=== PATIENT | male | born 1995 | race Caucasian/White ===

== ENCOUNTER 2020-12-29 16:30 | Inpatient (IN) | payer MEDICAID, SELFPAY ==
[2020-12-29 16:45] VITALS: BMI 25.0
[2020-12-29 16:46] VITALS: BP 136/68; PULSE 98; RESP 20; TEMP 36.8; O2SAT 99
[2020-12-29] MEDS: hyDROXYzine 25 mg Capsule 50 MG PO (18:35)
--- NOTE | 2020-12-29 18:36 | PC.NURSE ---
PRN VISTARIL 50 MG GIVEN PO PER PT C/O STATED ANXIETY. PT HAS PRESSURED RAPID SPEECH, NOTED TO BE PACING UNIT. MANIC BEHAVIOR, SAYING HE IS VALERIANO HYPER UATSDIN. REDIRECTED BY STAFF OFTEN.
[2020-12-29] MEDS: nicotine 2 mg Gum BUCCAL (19:59)
[2020-12-29] MEDS: trazodone 50 mg Tablet PO (19:59)
[2020-12-29 20:58] VITALS: BP 116/52; PULSE 67; RESP 20; TEMP 36.7; O2SAT 99
--- NOTE | 2020-12-30 05:41 | PC.NURSE ---
Patient up at start of shift. Hyper-verbal, overly excited. Delusional thought process, talking about being Marlon, asking others to give him their demons. Re-directable but needs frequent direction. Took Trazodone that was effective. In beds resting with eyes closed most of night.
[2020-12-30 06:00] VITALS: BP 116/65; PULSE 95; RESP 18; TEMP 36.1; O2SAT 98
--- NOTE | 2020-12-30 10:38 | W.PM.NPUH&PS ---
Providers/Chief Complaint Admitting Physician: Yamil Boggs MD Chief Complaint: PSYCHOSIS - - - RM 170 HPI NPU History of Present Illness Davidson Zaman is a 25 year old male who presented to the outside hospital with concerns for psychosis and lethality. He was transferred to [facility] and admitted to the neuropsychiatric unit for definitive treatment of those issues. He presents today fairly animated, at times being very loud and aggressive with his speech. At one point during treatment team, he slipped a note through the door that said that he would not speak one word until he was discharged from our hospital. He wrote that on his 96-hour hold acknowledgment paperwork that gives him the time and information on the hold. At times he seemed aggressive and threatening, but at times he seemed calm and respectful, awful making rastafari comments like amen brother or thank God, sometimes giving a handshake and appearing welcoming, and other times being posturing. He reports he has had one psychiatric inpatient stay but it is not clear if he understood what that meant. He reports that he did have outpatient services as a kid, that he was on medications when he was 15 years old but denies any recently. He reports he smokes about a pack to two packs of cigarettes a day. He denies alcohol but endorses marijuana use. He initially said that he did not have any other illicit drug use, but then he seemed to suggest that he had. He denied ever being in the rehab or having a DUI. His conversation was sometimes staged in that he had certain word packages that he would state. One of the main ones was that he is an Hungarian martyr and he talked about being an [place] Martyr, though could not articulate what that actually meant. He talked about being stabbed in the legs, or stabbed at some point, but it seemed at one point that he was taking metaphorically about that. He talked about someone dying, but then it was unclear if that was real or imagined. He at times seemed to be lost in the conversation. He at one point denied that he would consider medication, then at another point when I talked to him about the fact that he was presenting with what we would call jaqueline and would benefit from medication. He initially refused and then he said he would take Abilify. We discussed the risks, benefits, and alternatives of me putting it on his medications for them to offer him in the morning, and he appeared to understand and agreed to proceed as is documented in this note. When asked about suicide attempts, he said he had one in the past but then continued on the rastafari focus talking about God and how only God could take you and God?s plans. He seemed to understand that he was on a 96-hour hold, but then did not seem to really understand the specifics. PSYCHIATRIC HISTORY: As above. SUBSTANCE ABUSE HISTORY: As above. FAMILY HISTORY: He reports that there are some mental health issues on his mother?s side, but then denied any other family history issues, addiction, suicide attempts, or completions. He seemed to be limited as a historian. DEVELOPMENTAL HISTORY: He denies any issues with his mother?s or delivery of him. He met all developmental milestones on time. He denies any speech therapy, learning support, emotional support, or special education classes. PSYCHOSOCIAL HISTORY: He reports his mom and dad were together when he was born, and that he has a younger sister that is the product of that union. He reports his mother had another daughter who is his half-sibling. He reports his childhood was great and denied any emotional, physical, or sexual abuse. He reports he graduated from high school and was in [employer] [[email or web address]] but did not finish. He endorses being a heterosexual with his longest relationship being three years. He reports he has never been , that he has a 7-year-old child somewhere and a child that was born on 07[birth year]04[birth year]20 as well. He denies being in the but does report this [employer] [[email or web address]] thing, and again reported that he was an Hungarian Martyr. He endorses being a Orthodoxy. He reports that he has worked off and on, and he endorses living with his maternal grandmother. LEGAL HISTORY: He reports he has never been in long-term. MEDICAL HISTORY: Denied. Meds NPU Allergies Allergy/AdvReac Type Severity Reaction Status Date / Time No Known Allergies Allergy Verified 12/29/20 18:33 PFSH NPU PFS: Medical History (Updated 12/31/20 @ 09:07 by Yamil Boggs MD) Psychosis Mental Status Exam MSE Comments: This is a well-nourished, well-developed, tall, white male, in hospital scrubs, with adequate dress, grooming, and eye contact. No abnormal movements except for some psychomotor agitation. Limited cooperation with exam in mild to moderate distress at times. Speech was at times limited and at other times increased rate and pressured. Mood described as fine; affect elevated. Thought process, disorganized at times. Thought content: patient denied any suicidal or homicidal ideation, there were no delusions reported but clear hyper-rastafari delusions noted as well as other delusions. He did not appear to be attending to internal stimuli and did not report auditory or visual hallucinations. Attention and concentration were limited, and memory was mostly reliable, but none were formally tested. He is alert and oriented times person and place. Insight and judgment are impaired, impulse control is impaired. Vitals/I&O/Wt Last Vital Signs Temp 96.9 F L 12/30/20 06:00 Pulse 95 12/30/20 06:00 Resp 18 12/30/20 06:00 BP 116/65 12/30/20 06:00 Pulse Ox 98 12/30/20 06:00 Weight last 48 hrs Weight 90.718 kg A&P Assessment and plan (1) Psychosis: Status: Acute Additional A&P Information This is a 25-year-old, white male, with psychosis/jaqueline, who presented with suicidal and homicidal assertions at outside hospital, on a 96-hour hold, seeming ambivalent about taking medications. RECOMMENDATION AND PLAN: 1. Continue current medication except start Abilify 10 mg po qam in the morning, offer medication as patient has both agreed, and denied a willingness to take medication. 2. Encourage individual, group, and milieu therapy. 3. Continue q-15 minute checks for safety. 4. Encourage sober living treatment after discharge, at the highest level of care, to which he is willing to commit. Involuntary Hold Information 96 Hour Hold: 96 Hour Involuntary Admission: Yes 96 Hour Hold Ending Date: 01/04/21 96 Hour Hold Ending Time: 16:45 Attestations NPU Medical Necessity Statement*: Inpatient hospitalization is medically necessary and the clinically appropriate intervention at this time. We will monitor medication to make changes as indicated. Likely length of stay 3 to 5 days. Coding Level of Care Code Acute Contestant Coordinator for Hollie Elder Diagnoses Psychosis F29
[2020-12-30] MEDS: nicotine 2 mg Gum BUCCAL (13:13)
[2020-12-30] MEDS: OLANZapine 5 mg ODT PO (13:23)
--- NOTE | 2020-12-30 13:37 | NPU.GN ---
[facility] Topic:Coping Checkers General Mood of Group: Davidson did attend group and tried to participate. He often got distracted and could not focus on task or group. Kept talking about god and how he is was killed. He was not making sense. He also kept trying to get another patient in group to fight him. This assembly instructions writer asked him to leave group and said when he feels that he can follow group rules then he can return as she was upsetting others. Patient apologized many times and left and came back a few times. Davidson is not stable at this time.
[2020-12-30 14:00] VITALS: BP 118/68; PULSE 106; RESP 20; TEMP 36.5; O2SAT 98
[2020-12-30] MEDS: diphenhydrAMINE 50 mg/mL SDV 1mL IM (15:31)
[2020-12-30] MEDS: LORazepam 2 mg/mL INJ 1 mL IM (15:31)
[2020-12-30] MEDS: haloperidol inj 5 mg/mL INJ 1 mL IM (15:32)
--- NOTE | 2020-12-30 15:32 | PC.NURSE ---
prn 1532 Administered 2mg ativan, 5 mg haldol, 50mg benadryl, witnessed pt having verbal arguments with other pt's, running down the hallway. Will continue to monitor pt.
[2020-12-30 20:08] VITALS: RESP 16
[2020-12-31 06:00] VITALS: BP 120/72; PULSE 84; RESP 18; O2SAT 99
[2020-12-31] MEDS: ARIPiprazole 10 mg Tablet PO (08:19)
[2020-12-31] MEDS: nicotine 2 mg Gum BUCCAL ×2 (08:20→19:47)
--- NOTE | 2020-12-31 10:11 | W.PM.NPUPNS ---
Subjective NPU Subjective: Interval history: He continues to be very active and delusional. He acts bizarre at times. He was pushing himself down the hallway on his stomach. He wrote a long letter that is difficult to understand. He was pleasant with my evaluation. He said that he had pledged not to talk for 24 hours but asked my permission if it was okay to break that promise. He talked with me readily. He said that he took the Abilify this morning. He does not need it because God is my medicine . He denies any side effects from the Abilify. He did not express any concerns about taking it. When asked why he was here he said that his logistics supply officer wanted him to come. He has a logistics supply officer because of paths methamphetamine abuse. He says that he has not used methamphetamine for the last 6 months. He showed me track sahu on both arms which he says have healed. He said that he used methamphetamine the first time when he was 20 and was going to join the [employer]. 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 Mental Status Exam MSE Comments: This is a well-nourished, well-developed, tall, white male, in hospital scrubs, with adequate dress, grooming, and eye contact. No abnormal movement . Psychomotor activity was normal. He was generally cooperative today. His speech is clear and coherent and a regular rate and rhythm. There is no push. His mood is good and his affect is animated. Thought content is very delusional and grandiose. At the end of the interview he looked out the window and said CL team 6 was out there and might kill him. When asked why he said because he has hired them and fired them and hired them and fired them . He denies any auditory or visual hallucinations and was not overtly attending to any. Attention and concentration appear to be limited and he is very distractible. He is impulsive and intrusive on the unit. Insight and judgment are very impaired. Vitals/I&O/Wt Last Vital Signs Temp 97.7 F 12/30/20 14:00 Pulse 84 12/31/20 06:00 Resp 18 12/31/20 06:00 BP 120/72 12/31/20 06:00 Pulse Ox 99 12/31/20 06:00 Weight last 48 hrs Weight 90.718 kg A&P Assessment and plan (1) Psychosis: Status: Acute Additional A&P Information This is a 25-year-old, white male, with psychosis/jaqueline, who presented with suicidal and homicidal assertions at outside hospital, on a 96-hour hold, seeming ambivalent about taking medications. RECOMMENDATION AND PLAN: 1. Continue current medication including Abilify 10 mg po qam in the morning. 2. Encourage individual, group, and milieu therapy. 3. Continue q-15 minute checks for safety. 4. Encourage sober living treatment after discharge, at the highest level of care, to which he is willing to commit. Involuntary Hold Information 96 Hour Hold: 96 Hour Involuntary Admission: Yes 96 Hour Hold Ending Date: 01/04/21 96 Hour Hold Ending Time: 16:45 Attestations NPU Medical Necessity Statement*: Inpatient hospitalization is medically necessary and the clinically appropriate intervention at this time. We will initiate medications and make changes as indicated. He will be in the hospital for over 2 midnights. Likely length of stay 4-6 days Coding Level of Care Code Acute Coil Maker for Hollie Fwqamar Diagnoses Psychosis F29
[2020-12-31] MEDS: OLANZapine 5 mg ODT PO ×2 (10:48→20:07)
--- NOTE | 2020-12-31 10:49 | PC.NURSE ---
prn Administered zyprexa zydis 5mg due to being loud and hyper jew pacing the halls and hanging out at the nurses station, will continue to monitor pt.
[2020-12-31] MEDS: haloperidol 5 mg Tablet PO (11:28)
--- NOTE | 2020-12-31 11:29 | PC.NURSE ---
prn Administered 5mg Haldol for pt hallucinating and talking to beings that are not visible, pacing up and down the hallway. Wanting to kill all [place] men for creating the covid virus. Pt stated that he sees signs in the venkata.
[2020-12-31 14:00] VITALS: BP 120/72; PULSE 84; RESP 18; TEMP 36.5; O2SAT 99
[2020-12-31 19:58] VITALS: BP 129/86; PULSE 87; RESP 18; O2SAT 98
[2020-12-31] MEDS: hyDROXYzine 25 mg Capsule 50 MG PO (20:06)
[2020-12-31] MEDS: trazodone 50 mg Tablet PO (20:07)
[2021-01-01 06:00] VITALS: RESP 16
--- NOTE | 2021-01-01 06:59 | W.PM.NPUPNS ---
Subjective NPU Subjective: Interval history: He continues to be very active and delusional. He acts bizarre at times. He was pleasant with my evaluation. He talked with me readily despite me interrupting his 15 minutes of standing for the fallen. He said that he is Marlon Rodriguez. He pointed out the window to the venkata and said that Michael was there. Later he said that I was his brother in [place]. He says that he took 4 pills last night to try to help him sleep. He took some hydroxyzine and Zyprexa Zydis. He was given Haldol once during the day. He thinks that he received some trazodone but that is not recorded. He said he had a very strange dream and he attributed that to the trazodone. He says that he slept 3 hours. He would like to sleep more. He feels like he is ready to go home. He agreed to stay a few more days. He was offered some Seroquel to help him sleep. He excepted that and said it helps his mother. She took 800 mg at 1 point. Mental Status Exam MSE Comments: This is a well-nourished, well-developed, tall, white male, in hospital scrubs, with adequate dress, grooming, and eye contact. No abnormal movement . Psychomotor activity was mildly increased. He was generally cooperative today. His speech is clear and coherent and a regular rate and rhythm. There is no push. His mood is good and his affect is animated. Thought content is very delusional and grandiose. He denies any auditory or visual hallucinations and was not overtly attending to any. Attention and concentration appear to be limited and he is very distractible. He is impulsive and intrusive on the unit. Insight and judgment are very impaired. Vitals/I&O/Wt Last Vital Signs Temp 97.7 F 12/31/20 14:00 Pulse 87 12/31/20 19:58 Resp 16 01/01/21 06:00 BP 129/86 12/31/20 19:58 Pulse Ox 98 12/31/20 19:58 A&P Assessment and plan (1) Psychosis: Status: Acute Additional A&P Information This is a 25-year-old, white male, with psychosis/jaqueline, who presented with suicidal and homicidal assertions at outside hospital, on a 96-hour hold, seeming ambivalent about taking medications. RECOMMENDATION AND PLAN: 1. Continue current medication including Abilify 10 mg po qam. Will add Seroquel 100 mg for sleep with a second dose if that does not sedate him enough. 2. Encourage individual, group, and milieu therapy. 3. Continue q-15 minute checks for safety. 4. Encourage sober living treatment after discharge, at the highest level of care, to which he is willing to commit. Involuntary Hold Information 96 Hour Hold: 96 Hour Involuntary Admission: Yes 96 Hour Hold Ending Date: 01/04/21 96 Hour Hold Ending Time: 16:45 Attestations NPU Medical Necessity Statement*: Inpatient hospitalization is medically necessary and the clinically appropriate intervention at this time. We will initiate medications and make changes as indicated. Coding Level of Care Code Acute Gathering Machine Setter for Hollie Elder Diagnoses Psychosis F29
[2021-01-01] MEDS: ARIPiprazole 10 mg Tablet PO (07:38)
[2021-01-01] MEDS: quetiapine 100 mg Tablet PO ×2 (07:38→09:57)
--- NOTE | 2021-01-01 13:12 | NPU.GN ---
[facility] Topic: Coping Skills BINGO General Mood of Group: Ramón was well groomed, dressed and good hygiene. He was in and out of group. At times he was disruptive. He was being hyper temple and was using inappropriate language in the group. I worried at times that he may have been making the group anxious. At one point I was able to ask him to speak with nursing staff so he would have a reason to leave the group with out being upset. He was not able to participate well in the group. He was not able to stay focused on the task (Marking X appropriately on Bingo page. His mental health and cognitive abilities seem to be in a decline.
[2021-01-01 14:00] VITALS: BP 129/86; PULSE 87; RESP 16; TEMP 36.5; O2SAT 98
[2021-01-01] MEDS: hyDROXYzine 25 mg Capsule 50 MG PO (16:34)
[2021-01-01] MEDS: trazodone 50 mg Tablet PO (20:06)
[2021-01-01 21:35] VITALS: BP 117/62; PULSE 93; RESP 18; TEMP 36.6; O2SAT 98
[2021-01-02 06:00] VITALS: RESP 15
[2021-01-02] MEDS: nicotine 2 mg Gum BUCCAL ×2 (06:33→18:10)
[2021-01-02] MEDS: OLANZapine 5 mg ODT PO (08:26)
[2021-01-02] MEDS: ARIPiprazole 10 mg Tablet PO (08:26)
[2021-01-02] MEDS: haloperidol 5 mg Tablet PO ×2 (10:49→19:16)
[2021-01-02 14:00] VITALS: BP 135/82; PULSE 110; RESP 18; TEMP 36.2; O2SAT 98
--- NOTE | 2021-01-02 14:16 | W.PM.NPUPNS ---
Subjective NPU Subjective: Interval history: He says that he slept 7 hours last night. He said that he only took 1 pill last night, the trazodone. It is recorded that he also took the hydroxyzine and Zyprexa Zydis 5 mg. He continues to be very delusional. He continues to say that he is the [place]yan[place] martyr and that Eddi Flores is a real person and is his cousin. He continues to be compliant with his morning Abilify. Mental Status Exam MSE Comments: This is a well-nourished, well-developed, tall, white male, in hospital scrubs, with adequate dress, grooming, and eye contact. No abnormal movement . Psychomotor activity was mildly increased. He was generally cooperative today. His speech is clear and coherent and a regular rate and rhythm. There is no push. His mood is good and his affect is animated. Thought content is very delusional and grandiose. He denies any auditory or visual hallucinations and was not overtly attending to any. Attention and concentration appear to be limited and he is very distractible. He is impulsive and intrusive on the unit. Insight and judgment are very impaired. Vitals/I&O/Wt Last Vital Signs Temp 97.9 F 01/01/21 21:35 Pulse 93 01/01/21 21:35 Resp 15 01/02/21 06:00 BP 117/62 01/01/21 21:35 Pulse Ox 98 01/01/21 21:35 A&P Assessment and plan (1) Psychosis: Status: Acute Additional A&P Information This is a 25-year-old, white male, with psychosis/jaqueline, who presented with suicidal and homicidal assertions at outside hospital, on a 96-hour hold, seeming ambivalent about taking medications. RECOMMENDATION AND PLAN: 1. Continue current medication including Abilify 10 mg po qam. Will add Seroquel 100 mg for sleep with a second dose if that does not sedate him enough. 2. Encourage individual, group, and milieu therapy. 3. Continue q-15 minute checks for safety. 4. Encourage sober living treatment after discharge, at the highest level of care, to which he is willing to commit. Involuntary Hold Information 96 Hour Hold: 96 Hour Involuntary Admission: Yes 96 Hour Hold Ending Date: 01/04/21 96 Hour Hold Ending Time: 16:45 Attestations NPU Medical Necessity Statement*: Inpatient hospitalization is medically necessary and the clinically appropriate intervention at this time. We will initiate medications and make changes as indicated Coding Level of Care Code Acute Department [employer] for Hollie Fwqamar Diagnoses Psychosis F29
--- NOTE | 2021-01-02 19:17 | PC.NURSE ---
Patient angry, yelling about the news and the russell trial . Patient yelling about biden and trump. Patient states, just give me the shot!! Patient up on the bench, pushing on ceiling tiles, stating again about we should all quit and get out now. Haldol 5mg given PO. Will continue to monitor.
[2021-01-02 20:45] VITALS: RESP 19
[2021-01-02] MEDS: trazodone 50 mg Tablet PO (20:59)
[2021-01-02] MEDS: quetiapine 100 mg Tablet PO (20:59)
[2021-01-03 06:00] VITALS: BP 110/66; PULSE 103; RESP 18; TEMP 36.9; O2SAT 99; BMI 25.0
--- NOTE | 2021-01-03 07:17 | P.NPUPN_ITS ---
Subjective NPU Subjective: Interval history: He has been compliant with his medications. He said he slept very well last night with the Seroquel. He was also given Zyprexa Zydis and hydroxyzine. He continues to be up and pacing the hallway. He is very intrusive into other people's conversations. He continues to be very grandiose with a lot of taoist preoccupation. At one point he said that I was Marlon Rodriguez. He has a lot of gesturing that sometimes you can determine the intention and sometimes not. He is sometimes redirectable and sometimes not. Unfortunately my office has a door on the hallway and he has learned that that is my door and knocks on it several times a day and keeps saying things until I respond. He asked about court and initially said he was looking forward to going to court with me. Then he reversed that and said he did not want to go to court and wanted to go home. Mental Status Exam MSE Comments: This is a well-nourished, well-developed, tall, white male, in hospital scrubs, with adequate dress, grooming, and eye contact. No abnormal movement . Psychomotor activity was mildly increased. He is usually walking up and down the hallway. He has a lot of gesturing with his arms and hands. He was generally cooperative today. His speech is clear and coherent and a regular rate and rhythm. There is no push. His mood is good and his affect is animate d. Thought content is very delusional and grandiose. He denies any auditory or visual hallucinations and was not overtly attending to any. Attention and concentration appear to be limited and he is very distractible. He is impulsive and intrusive on the unit. Insight and judgment are very impaired. Cognition: Patient Appearance: Appropriate Ability to Follow Directions: Poor Patient Orientation (long list): Person, Place and Name Comprehension Ability: No Impairment Hallucination Type: None Delusion Description: Denominational Thought Process: Circumstantial, Disorganized, Flight of Ideas, Loose Associations and Tangential Affect: Affect Description: Appropriate and Calm Behavior: Patient Behavior: Appropriate and Cooperative Speech Pattern: Appropriate and Clear Vitals/I&O/Wt Last Vital Signs Temp 98.4 F 01/03/21 06:00 Pulse 103 H 01/03/21 06:00 Resp 18 01/03/21 06:00 BP 110/66 01/03/21 06:00 Pulse Ox 99 01/03/21 06:00 Weight last 48 hrs Weight 90.718 kg A&P Assessment and plan (1) Psychosis: Status: Acute Additional A&P Information This is a 25-year-old, white male, with psychosis/jaqueline, who presented with suicidal and homicidal assertions at outside hospital, on a 96-hour hold, seeming ambivalent about taking medications. RECOMMENDATION AND PLAN: 1. Continue current medication including Abilify 10 mg po qam and Seroquel 100 mg for sleep. 2. Encourage individual, group, and milieu therapy. 3. Continue q-15 minute checks for safety. 4. Encourage sober living treatment after discharge, at the highest level of care, to which he is willing to commit. 5. hearing for 21 day hold will be in 2 or 3 days. Involuntary Hold Information 96 Hour Hold: 96 Hour Involuntary Admission: Yes 96 Hour Hold Ending Date: 01/04/21 96 Hour Hold Ending Time: 16:45 Attestations NPU Medical Necessity Statement*: Inpatient hospitalization is medically necessary and the clinically appropriate intervention at this time. We will initiate medications and make changes as indicated Coding Level of Care Code Acute Acid Wash Operator for Hollie Elder Diagnoses Psychosis F29
[2021-01-03] MEDS: ARIPiprazole 10 mg Tablet PO (08:59)
[2021-01-03] MEDS: haloperidol 5 mg Tablet PO (10:11)
[2021-01-03] MEDS: nicotine 2 mg Gum BUCCAL (11:19)
[2021-01-03 14:00] VITALS: BP 125/75; PULSE 96; RESP 20; TEMP 36.3; O2SAT 98
[2021-01-03] MEDS: trazodone 50 mg Tablet PO (20:55)
[2021-01-03] MEDS: quetiapine 100 mg Tablet PO (20:55)
--- NOTE | 2021-01-03 20:55 | PC.NURSE ---
pt had requested sleep med with hs med. trazodone 50mg po given.
[2021-01-03 20:58] VITALS: RESP 17
--- NOTE | 2021-01-03 21:01 | PC.NURSE ---
pt sleeping/respirations observed/will obtain vital signs later
[2021-01-04 06:00] VITALS: RESP 16
[2021-01-04] MEDS: ARIPiprazole 10 mg Tablet PO (09:55)
[2021-01-04] MEDS: haloperidol 5 mg Tablet PO (10:49)
[2021-01-04] MEDS: OLANZapine 5 mg ODT PO (10:49)
[2021-01-04] MEDS: diphenhydrAMINE 50 mg/mL SDV 1mL IM (11:23)
[2021-01-04] MEDS: LORazepam 2 mg/mL INJ 1 mL IM (11:24)
--- NOTE | 2021-01-04 11:47 | P.NPUPN_ITS ---
Subjective NPU Subjective: Interval history: He is more agitated and more hyper today. He has more intrusive. He seems to be more psychotic. He has been agitating the other patients more. He was given a as needed of Zyprexa Zydis and Haldol this morning with minimal effect. He was then given an injection of Ativan and Benadryl with some additional benefit. It does not seem like the Abilify 10 mg is doing anything. Will change to twice a day Zyprexa. Mental Status Exam MSE Comments: This is a well-nourished, well-developed, tall, white male, in hospital scrubs, with adequate dress, grooming, and eye contact. No abnormal movement . Psychomotor activity was more increased. He is usually walking up and down the hallway. He has a lot of gesturing with his arms and hands. He was generally cooperative today. His speech is clear and coherent and a regular rate and rhythm. There is some push. His mood is good and his affect is more animated. Thought content is very delusional and grandiose. He was talking to other patients about his abilities. He said that he did not understand why he could not heal one of the other patients. He denies any auditory or visual hallucinations and was not overtly attending to any. Attention and concentration appear to be limited and he is very distractible. He is impulsive and intrusive on the unit. Insight and judgment are very impaired. Cognition: Patient Appearance: Appropriate Ability to Follow Directions: Poor Patient Orientation (long list): Person, Place and Name Comprehension Ability: No Impairment Hallucination Type: Auditory and Visual Delusion Description: Paranoid Ideation and Christianity Thought Process: Circumstantial, Disorganized, Flight of Ideas, Loose Associations and Tangential Affect: Affect Description: Labile Behavior: Patient Behavior: Impulsive Speech Pattern: Excessive and Rambling Vitals/I&O/Wt Last Vital Signs Temp 97.4 F L 01/03/21 14:00 Pulse 96 01/03/21 14:00 Resp 16 01/04/21 06:00 BP 125/75 01/03/21 14:00 Pulse Ox 98 01/03/21 14:00 Weight last 48 hrs Weight 90.718 kg A&P Assessment and plan (1) Psychosis: Status: Acute Additional A&P Information This is a 25-year-old, white male, with psychosis/jaqueline, who presented with pascal icidal and homicidal assertions at outside hospital, on a 96-hour hold, seeming ambivalent about taking medications. RECOMMENDATION AND PLAN: 1. We will discontinue Abilify 10 mg and try Zyprexa 10 mg twice a day. We will continue Seroquel 100 mg at bedtime and the other as neededs.. 2. Encourage individual, group, and milieu therapy. 3. Continue q-15 minute checks for safety. 4. Encourage sober living treatment after discharge, at the highest level of care, to which he is willing to commit. 5. hearing for 21 day hold will be in 2 or 3 days. Involuntary Hold Information 96 Hour Hold: 96 Hour Involuntary Admission: Yes 96 Hour Hold Ending Date: 01/04/21 96 Hour Hold Ending Time: 16:45 Attestations NPU Medical Necessity Statement*: Inpatient hospitalization is medically necessary and the clinically appropriate intervention at this time. We will initiate medications and make changes as indicated. Coding Level of Care Code Acute Manager Service Desk for Hollie Elder Diagnoses Psychosis F29
--- NOTE | 2021-01-04 13:32 | NPU.GN ---
[facility] Topic:Psychiatric Education General Mood of Group: Davidson did attend and participate in group. This specification writer had to redirect this patient many times and encourage the patient to be respectful of others. He was asked to take awalk and gather his thoughts and return when he can. Davidson is all over the place with discussion and topics. His mental state is unsteady at this time.
[2021-01-04 14:00] VITALS: RESP 17
[2021-01-04] MEDS: OLANZapine 10 mg TABLET PO (20:36)
[2021-01-04] MEDS: quetiapine 100 mg Tablet PO (20:36)
[2021-01-04 21:21] VITALS: BP 127/68; PULSE 67; RESP 17; TEMP 36.8; O2SAT 97
[2021-01-05] MEDS: OLANZapine 10 mg TABLET PO ×2 (05:53→21:09)
[2021-01-05 06:00] VITALS: BP 128/74; PULSE 104; RESP 16; TEMP 37.2; O2SAT 100
[2021-01-05] MEDS: nicotine 2 mg Gum BUCCAL (10:15)
--- NOTE | 2021-01-05 12:40 | NPU.GN ---
[facility] Topic:roup Topic: What are we Thankful For General Mood of Group: Davidson did attend group and he participated . He was very social and in a good mindset. His hygiene was ok. He had to be reoriented and redirected many times as he was being disruptive in group and got another female patient upset . Davidson can not stay goal or topic oriented his thoughts and speeches are all sporadic and he can not hold a conversation on task. He even got rude to another male client at the end of group and this development writer had to verbally intervene and tell the patient that is it is not acceptable to treat others that way. Davidson then calmed down and apologized to this development writer and the other patient. He is not mentally or emotionally stable at this time.
[2021-01-05 14:00] VITALS: BP 132/82; PULSE 90; RESP 18; TEMP 36.4; O2SAT 99
[2021-01-05] MEDS: OLANZapine 5 mg ODT PO (16:05)
[2021-01-05] MEDS: haloperidol 5 mg Tablet PO (16:05)
[2021-01-05] MEDS: trazodone 50 mg Tablet PO (21:08)
[2021-01-05] MEDS: quetiapine 100 mg Tablet PO (21:08)
[2021-01-05 21:48] VITALS: RESP 19
[2021-01-06 06:00] VITALS: BP 103/58; PULSE 64; RESP 16; TEMP 37; O2SAT 99
[2021-01-06] MEDS: OLANZapine 10 mg TABLET PO ×3 (06:25→19:42)
[2021-01-06] MEDS: haloperidol 5 mg Tablet PO ×3 (08:09→19:42)
[2021-01-06] MEDS: OLANZapine 5 mg ODT PO ×2 (08:09→14:08)
[2021-01-06] MEDS: hyDROXYzine 25 mg Capsule 50 MG PO ×3 (08:10→19:42)
--- NOTE | 2021-01-06 08:11 | PC.NURSE ---
Patient repeating, you have permission to poison my food if I am evil and not Marlon Michael I will stand here at attention for 30 minutes waiting for Hung Kelly the next executive vice president business development medicated patient with PRN orders, Yessica Rodriguez, and Lesia CUELLAR.
--- NOTE | 2021-01-06 13:14 | NPU.GN ---
[facility] Group Topic:Group Topic: Pie of Emotions, Coping, and Supports General Mood of Group: Davidson did eventually attend group and participated. He is still mentally unstable and sporadic with his verbiage and spiritual discussions. He has to be reoriented and redirected daily in groups. He did get verbally rude with another patient at the end of group. This bond underwriter de- escalated Davidson and was able to ask him to take a walk.Davidson respected re direction from this bond underwriter and did as this bond underwriter asked him. He was calm after that for this bond underwriter.
[2021-01-06 14:00] VITALS: BP 123/79; PULSE 96; RESP 18; TEMP 36.3; O2SAT 99
--- NOTE | 2021-01-06 15:05 | P.NPUPN_ITS ---
Subjective NPU Subjective: Interval history: He continues to be agitated and hyper today. He has very intrusive. He seems to be more psychotic. He has been agitating the other patients more. He was given a as needed of Zyprexa Zydis and Haldol this morning with minimal effect. He was then given an injection of Ativan and Benadryl with some additional benefit. It does not seem like the Abilify 10 mg is doing anything. The 20 mg Zyprexa just started today. Mental Status Exam MSE Comments: This is a well-nourished, well-developed, tall, white male, in hospital scrubs, with adequate dress, grooming, and eye contact. No abnormal movement . Psychomotor activity was more increased. He is usually walking up and down the hallway. He has a lot of gesturing with his arms and hands. He was generally cooperative today. His speech is clear and coherent and a regular rate and rhythm. There is some push. His mood is good and his affect is more animated. Thought content is very delusional and grandiose. He denies any auditory or visual hallucinations and was not overtly attending to any. Attention and concentration appear to be limited and he is very distractible. He is impulsive and intrusive on the unit. Insight and judgment are very impaired. Cognition: Patient Appearance: Appropriate Ability to Follow Directions: Poor Patient Orientation (long list): Person, Place and Name Comprehension Ability: No Impairment Hallucination Type: None Delusion Description: Paranoid Ideation and Episcopalian Thought Process: Circumstantial, Disorganized, Flight of Ideas, Loose Associations and Tangential Affect: Affect Description: Appropriate and Elated Behavior: Patient Behavior: Appropriate, Cooperative, Impulsive and Intrusive Speech Pattern: Rambling Vitals/I&O/Wt Last Vital Signs Temp 98.6 F 01/06/21 06:00 Pulse 64 01/06/21 06:00 Resp 16 01/06/21 06:00 BP 103/58 01/06/21 06:00 Pulse Ox 99 01/06/21 06:00 A&P Assessment and plan (1) Psychosis: Status: Acute Additional A&P Information This is a 25-year-old, white male, with psychosis/jaqueline, who presented with suicidal and homicidal assertions at outside hospital, on a 96-hour hold, seeming ambivalent about taking medications. RECOMMENDATION AND PLAN: 1. Continue Zyprexa 10 mg twice a day. We will continue Seroquel 100 mg at bedtime and the other as needed medications.. 2. Encourage individual, group, and milieu therapy. 3. Continue q-15 minute checks for safety. 4. Encourage sober living treatment after discharge, at the highest level of care, to which he is willing to commit. 5. hearing for 21 day hold will be later today. Involuntary Hold Information 96 Hour Hold: 96 Hour Involuntary Admission: Yes 96 Hour Hold Ending Date: 01/04/21 96 Hour Hold Ending Time: 16:45 Attestations NPU Medical Necessity Statement*: Inpatient hospitalization is medically necessary and the clinically appropriate intervention at this time. We will initiate medications and make changes as indicated. Coding Level of Care Code Acute Manufacturing Intern for Hollie Elder Diagnoses Psychosis F29
--- NOTE | 2021-01-06 15:08 | P.NPUPN_ITS ---
Subjective NPU Subjective: Interval history: He continues to be cooperative and compliant with medications but agitated and hyper today. Maybe a little bit decreased from yesterday. He has very intrusive. He continues to agitate the other patients. The 20 mg Zyprexa just started yesterday. He continues to have no insight into his illness Mental Status Exam MSE Comments: This is a well-nourished, well-developed, tall, white male, in hospital scrubs, with adequate dress, grooming, and eye contact. No abnormal movement . Psychomotor activity was more increased. He is usually walking up and down the hallway. He has a lot of gesturing with his arms and hands. He was generally cooperative today. His speech is clear and coherent and a regular rate and rhythm. There is some push. His mood is good and his affect is more animated. Thought content is very delusional and grandiose. He denies any auditory or visual hallucinations and was not overtly attending to any. Attention and concentration appear to be limited and he is very distractible. He is impulsive and intrusive on the unit. Insight and judgment are very impaired. Cognition: Patient Appearance: Appropriate Ability to Follow Directions: Poor Patient Orientation (long list): Person, Place and Name Comprehension Ability: No Impairment Hallucination Type: None Delusion Description: Paranoid Ideation and Mandaeism Thought Process: Circumstantial, Disorganized, Flight of Ideas, Loose Associations and Tangential Affect: Affect Description: Appropriate and Elated Behavior: Patient Behavior: Appropriate, Cooperative, Impulsive and Intrusive Speech Pattern: Rambling Vitals/I&O/Wt Last Vital Signs Temp 98.6 F 01/06/21 06:00 Pulse 64 01/06/21 06:00 Resp 16 01/06/21 06:00 BP 103/58 01/06/21 06:00 Pulse Ox 99 01/06/21 06:00 A&P Assessment and plan (1) Psychosis: Status: Acute Additional A&P Information This is a 25-year-old, white male, with psychosis/jaqueline, who presented with suicidal and homicidal assertions at outside hospital, on a 96-hour hold, seeming ambivalent about taking medications. RECOMMENDATION AND PLAN: 1. Continue Zyprexa 10 mg twice a day. We will continue Seroquel 100 mg at bedtime and the other as needed medications.. 2. Encourage individual, group, and milieu therapy. 3. Continue q-15 minute checks for safety. 4. Encourage sober living treatment after discharge, at the highest level of c are, to which he is willing to commit. 5. hearing for 21 day hold will be later today. Involuntary Hold Information 96 Hour Hold: 96 Hour Involuntary Admission: Yes 96 Hour Hold Ending Date: 01/04/21 96 Hour Hold Ending Time: 16:45 Attestations NPU Medical Necessity Statement*: Inpatient hospitalization is medically necessary and the clinically appropriate intervention at this time. We will initiate medications and make changes as indicated. Coding Level of Care Code Acute Information Systems Auditor for Hollie Fwd Diagnoses Psychosis F29
[2021-01-06] MEDS: trazodone 50 mg Tablet PO (19:42)
[2021-01-06] MEDS: quetiapine 100 mg Tablet PO (19:42)
--- NOTE | 2021-01-06 19:45 | PC.NURSE ---
prn Administered haldol, vistaril for pt talking to un seen being. Will continue to monitor. Pt is becoming agitated.
[2021-01-06 21:06] VITALS: RESP 18
[2021-01-07 06:00] VITALS: BP 134/87; PULSE 85; RESP 18; O2SAT 97
[2021-01-07] MEDS: OLANZapine 5 mg ODT PO (06:41)
[2021-01-07] MEDS: hyDROXYzine 25 mg Capsule 50 MG PO ×2 (06:41→21:02)
[2021-01-07] MEDS: haloperidol 5 mg Tablet PO (08:49)
[2021-01-07] MEDS: OLANZapine 10 mg TABLET PO (08:49)
[2021-01-07] MEDS: nicotine 2 mg Gum BUCCAL ×2 (09:56→16:18)
[2021-01-07 14:00] VITALS: BP 136/82; PULSE 95; RESP 18; TEMP 36.8; O2SAT 98
--- NOTE | 2021-01-07 15:08 | W.PM.NPUPNS ---
Subjective NPU Subjective: Interval history: He continues to be cooperative and compliant with medications but agitated and hyper today. Maybe a little bit decreased from yesterday. He has very intrusive. He continues to agitate the other patients. The 20 mg Zyprexa just started 2 days ago. He continues to have no insight into his illness Mental Status Exam MSE Comments: This is a well-nourished, well-developed, tall, white male, in hospital scrubs, with adequate dress, grooming, and eye contact. No abnormal movement . Psychomotor activity needs to be increased. He is usually walking up and down the hallway. He has a lot of gesturing with his arms and hands. He was generally cooperative today. His speech is clear and coherent and a regular rate and rhythm. There is some push. His mood is good and his affect is more animated. Thought content is very delusional and grandiose. He denies any auditory or visual hallucinations and was not overtly attending to any. Attention and concentration appear to be limited and he is very distractible. He is impulsive and intrusive on the unit. Insight and judgment are very impaired. Cognition: Patient Appearance: Appropriate Ability to Follow Directions: Poor Patient Orientation (long list): Person, Place and Name Comprehension Ability: No Impairment Hallucination Type: None Delusion Description: Paranoid Ideation and Restorationism Thought Process: Circumstantial, Disorganized, Flight of Ideas, Loose Associations and Tangential Affect: Affect Description: Appropriate and Elated Behavior: Patient Behavior: Appropriate, Cooperative, Impulsive and Intrusive Speech Pattern: Rambling Vitals/I&O/Wt Last Vital Signs Temp 98.2 F 01/07/21 14:00 Pulse 95 01/07/21 14:00 Resp 18 01/07/21 14:00 BP 136/82 01/07/21 14:00 Pulse Ox 98 01/07/21 14:00 A&P Assessment and plan (1) Psychosis: Status: Acute Additional A&P Information This is a 25-year-old, white male, with psychosis/jaqueline, who presented with suicidal and homicidal assertions at outside hospital, on a 96-hour hold, seeming ambivalent about taking medications. RECOMMENDATION AND PLAN: 1. Continue Zyprexa 10 mg twice a day. We will continue Seroquel 100 mg at bedtime and the other as needed medications.. 2. Encourage individual, group, and milieu therapy. 3. Continue q-15 minute checks for safety. 4. Encourage sober living treatment after discharge, at the highest level of care, to which he is willing to commit. 5. hearing for 21 day hold will be later today. Involuntary Hold Information 96 Hour Hold: 96 Hour Involuntary Admission: Yes 96 Hour Hold Ending Date: 01/04/21 96 Hour Hold Ending Time: 16:45 Attestations NPU Medical Necessity Statement*: Inpatient hospitalization is medically necessary and the clinically appropriate intervention at this time. We will initiate medications and make changes as indicated. Coding Level of Care Code Acute Data Security Consultant for Hollie Fwd Diagnoses Psychosis F29
[2021-01-07 19:16] VITALS: BP 113/56; PULSE 73; RESP 16; TEMP 36.2; O2SAT 97
[2021-01-07] MEDS: quetiapine 100 mg Tablet PO (21:02)
[2021-01-08 05:35] VITALS: PULSE 127; RESP 20; TEMP 36.2; O2SAT 99
[2021-01-08] MEDS: hyDROXYzine 25 mg Capsule 50 MG PO (05:59)
[2021-01-08] MEDS: OLANZapine 10 mg TABLET PO ×2 (05:59→22:22)
[2021-01-08] MEDS: OLANZapine 5 mg ODT PO (08:33)
[2021-01-08] MEDS: nicotine 2 mg Gum BUCCAL (08:33)
[2021-01-08] MEDS: lithium carbonate 300 mg Capsule PO ×2 (08:33→17:23)
--- NOTE | 2021-01-08 08:55 | P.NPUPN_ITS ---
Subjective NPU Subjective: Interval history: He continues to be cooperative and compliant with medications but agitated and hyper today. Maybe a little bit decreased from yesterday. He has very intrusive. He continues to agitate the other patients. The 20 mg Zyprexa just started 2 days ago. He continues to have no insight into his illness. He agreed to some lithium to see if that will help we will start at twice a day and increase to 3 times a day. Mental Status Exam MSE Comments: This is a well-nourished, well-developed, tall, white male, in hospital scrubs, with adequate dress, grooming, and eye contact. No abnormal movement . Psychomotor activity needs to be increased. He is usually walking up and down the hallway. He has a lot of gesturing with his arms and hands. He was generally cooperative today. His speech is clear and coherent and a regular rate and rhythm. There is some push. His mood is good and his affect is more animated. Thought content is very delusional and grandiose. He denies any auditory or visual hallucinations and was not overtly attending to any. Attention and concentration appear to be limited and he is very distractible. He is impulsive and intrusive on the unit. Insight and judgment are very impaired. Cognition: Patient Appearance: Appropriate Ability to Follow Directions: Poor Patient Orientation (long list): Person, Place and Name Comprehension Ability: No Impairment Hallucination Type: None Delusion Description: Denominational Thought Process: Circumstantial, Disorganized, Flight of Ideas, Loose Associations and Tangential Affect: Affect Description: Appropriate and Elated Behavior: Patient Behavior: Cooperative, Impulsive and Intrusive Speech Pattern: Rambling Vitals/I&O/Wt Last Vital Signs Temp 97.2 F L 01/08/21 05:35 Pulse 127 H 01/08/21 05:35 Resp 20 H 01/08/21 05:35 BP 113/56 01/07/21 19:16 Pulse Ox 99 01/08/21 05:35 A&P Assessment and plan (1) Psychosis: Status: Acute Additional A&P Information This is a 25-year-old, white male, with psychosis/jaqueline, who presented with suicidal and homicidal assertions at outside hospital, on a 96-hour hold, seeming ambivalent about taking medications. RECOMMENDATION AND PLAN: 1. Continue Zyprexa 10 mg twice a day. We will continue Seroquel 100 mg at bedtime and the other as needed medications. Will add [place]. 2. Encourage individual, group, and milieu therapy. 3. Continue q-15 minute checks for safety. 4. Encourage sober living treatment after discharge, at the highest level of care, to which he is willing to commit. 5. hearing for 21 day hold will be later today. Involuntary Hold Information 96 Hour Hold: 96 Hour Involuntary Admission: Yes 96 Hour Hold Ending Date: 01/04/21 96 Hour Hold Ending Time: 16:45 Attestations NPU Medical Necessity Statement*: Inpatient hospitalization is medically necessary and the clinically appropriate intervention at this time. We will initiate medications and make changes as indicated. Coding Level of Care Code Acute Chair Inspector for Hollie Elder Diagnoses Psychosis F29
[2021-01-08 14:00] VITALS: BP 122/74; PULSE 94; RESP 20; TEMP 37.1; O2SAT 99
[2021-01-08] MEDS: quetiapine 100 mg Tablet PO (20:23)
[2021-01-08 20:28] VITALS: BP 131/72; PULSE 107; RESP 18; TEMP 36.8; O2SAT 96
[2021-01-09 06:00] VITALS: BP 123/59; PULSE 107; RESP 18; TEMP 36.6; O2SAT 100
[2021-01-09] MEDS: OLANZapine 10 mg TABLET PO ×2 (06:16→21:36)
--- NOTE | 2021-01-09 07:01 | P.NPUPN_ITS ---
Subjective NPU Subjective: Interval history: He was up and down last night. He continues to be very intrusive and delusional. He did not have any side effects from his lithium yesterday. He has continued to be compliant with medications. He gave me sheet with about 6 songs that are on YouTube that he says are very significant and could change the world. We will increase the lithium to 3 times a day today. He again said that he was Marlon Michael. He also said that he was a clown but it is unclear what he meant by that. He has no insight and feels like he is ready to be discharged. Mental Status Exam MSE Comments: This is a well-nourished, well-developed, tall, white male, in hospital scrubs, with adequate dress, grooming, and eye contact. No abnormal movement . Psychomotor activity needs to be increased. He is usually walking up and down the hallway. He has a lot of gesturing with his arms and hands. He was generally cooperative today. His speech is clear and coherent and a regular rate and rhythm. There is some push. His mood is good and his affect is animated. Thought content is very delusional and grandiose. He denies any auditory or visual hallucinations and was not overtly attending to any. Attention and concentration appear to be limited and he is very distractible. He is impulsive and intrusive on the unit. Insight and judgment are very impaired. Cognition: Patient Appearance: Appropriate Ability to Follow Directions: Poor Patient Orientation (long list): Person, Place and Name Comprehension Ability: No Impairment Hallucination Type: None Delusion Description: Uatsdin Thought Process: Circumstantial, Disorganized, Flight of Ideas, Loose Associations and Tangential Affect: Affect Description: Elated Behavior: Patient Behavior: Cooperative, Impulsive and Intrusive Speech Pattern: Clear and Rambling Vitals/I&O/Wt Last Vital Signs Temp 97.9 F 01/09/21 06:00 Pulse 107 H 01/09/21 06:00 Resp 18 01/09/21 06:00 BP 123/59 01/09/21 06:00 Pulse Ox 100 01/09/21 06:00 A&P Assessment and plan (1) Psychosis: Status: Acute Additional A&P Information This is a 25-year-old, white male, with psychosis/jaqueline, who presented with suicidal and homicidal assertions at outside hospital, on a 21-day commitment and has been cooperative with treatment RECOMMENDATION AND PLAN: 1. Continue Zyprexa 10 mg twice a day. We will continue Seroquel 100 mg at bedtime and the other as needed medications. Will increase lithium to 3 times a day. 2. Encourage individual, group, and milieu therapy. 3. Continue q-15 minute checks for safety. 4. Encourage sober living treatment after discharge, at the highest level of care, to which he is willing to commit. 5. He is on 21-day commitment for treatment and evaluation.. Involuntary Hold Information 96 Hour Hold: 96 Hour Involuntary Admission: Yes 96 Hour Hold Ending Date: 01/04/21 96 Hour Hold Ending Time: 16:45 Attestations NPU Medical Necessity Statement*: Inpatient hospitalization is medically necessary and the clinically appropriate intervention at this time. We will initiate medications and make changes as indicated. Coding Level of Care Code Acute Communication Arts Lecturer for Hollie Elder Diagnoses Psychosis F29
[2021-01-09] MEDS: lithium carbonate 300 mg Capsule PO ×3 (10:21→21:35)
[2021-01-09 14:00] VITALS: BP 117/70; PULSE 85; RESP 20; TEMP 36.4; O2SAT 98
--- NOTE | 2021-01-09 18:17 | PC.NURSE ---
Patient has been up today. Has remained hyperactive and hyper-oriental orthodox. Speech rambling about being Marlon. Does answer assessment questions appropriately. Denies AVH, SI/HI. Does interact with others. Needs frequent redirection.
[2021-01-09 19:44] VITALS: BP 127/72; PULSE 114; RESP 15; TEMP 36.8; O2SAT 98
[2021-01-09] MEDS: quetiapine 100 mg Tablet PO (21:35)
[2021-01-10 06:00] VITALS: RESP 16; BMI 25.0
[2021-01-10] MEDS: OLANZapine 10 mg TABLET PO ×2 (06:40→21:11)
--- NOTE | 2021-01-10 06:52 | P.NPUPN_ITS ---
Subjective NPU Subjective: Interval history: He reportedl yesterday. He slept well last night. The best that he has slept for some time. He only woke up once at about 3:30 but went back to sleep. He had the scheduled Zyprexa 10 mg and Seroquel 100 mg but did not have any as needed medications last night. That is the first time he has not needed medications to help him sleep. Yesterday was the first day of lithium 3 times a day. He seems more calm at this time but certainly will probably ramp up later. He says that he is not Marlon Michael although yesterday he was yelling that he was Marlon Michael. Yesterday afternoon, some of the patients and 1 staff were outside sitting at the table. He pointed and said that one of the female patients was very inappropriate and evil. He does not remember that specifically now but says that he should not have judged her. He is still focused on getting the coronavirus vaccine tomorrow. We will call the pharmacy and they will find out if he has had it previously. Mental Status Exam MSE Comments: This is a well-nourished, well-developed, tall, white male, in hospital scrubs, with adequate dress, grooming, and eye contact. No abnormal movement . Psychomotor activity continues to be increased. He is usually walking up and down the hallway. He has not been gesturing with his arms and hands quite as much. He was calm and cooperative today at this early hour. His speech is clear and coherent and a regular rate and rhythm. There was no push. His mood is good and his affect less animated. Thought content is still delusional and grandiose. He denies any auditory or visual hallucinations and was not overtly attending to any. Attention and concentration appear to be limited and he is very distractible. He is impulsive and intrusive on the unit. Insight and judgment are very impaired. Cognition: Patient Appearance: Appropriate Ability to Follow Directions: Poor Patient Orientation (long list): Person, Place and Name Comprehension Ability: No Impairment Hallucination Type: None Delusion Description: Christianity Thought Process: Circumstantial, Disorganized, Flight of Ideas, Loose Associations and Tangential Affect: Affect Description: Labile Behavior: Patient Behavior: Impulsive Speech Pattern: Excessive Vitals/I&O/Wt Last Vital Signs Temp 98.3 F 01/09/21 19:44 Pulse 114 H 01/09/21 19:44 Resp 16 01/10/21 06:00 BP 127/72 01/09/21 19:44 Pulse Ox 98 01/09/21 19:44 Weight last 48 hrs Weight 90.718 kg A&P Assessment and plan (1) Psychosis: Status: Acute Additional A&P Information This is a 25-year-old, white male, with psychosis/jaqueline, who presented with suicidal and homicidal assertions at outside hospital, on a 21-day commitment and has been cooperative with treatment RECOMMENDATION AND PLAN: 1. Continue Zyprexa 10 mg twice a day. We will continue Seroquel 100 mg at bedtime and the other as needed medications. Will continue lithium to 3 times a day. 2. Encourage individual, group, and milieu therapy. 3. Continue q-15 minute checks for safety. 4. Encourage sober living treatment after discharge, at the highest level of care, to which he is willing to commit. 5. He is on 21-day commitment for treatment and evaluation.. Involuntary Hold Information 96 Hour Hold: 96 Hour Involuntary Admission: Yes 96 Hour Hold Ending Date: 01/04/21 96 Hour Hold Ending Time: 16:45 Attestations NPU Medical Necessity Statement*: Inpatient hospitalization is medically necessary and the clinically appropriate intervention at this time. We will initiate medications and make changes as indicated. Coding Level of Care Code Acute Molding Machine Setter for Hollie Elder Diagnoses Psychosis F29
[2021-01-10] MEDS: lithium carbonate 300 mg Capsule PO ×3 (09:14→21:12)
[2021-01-10 14:00] VITALS: BP 152/75; PULSE 95; RESP 17; TEMP 36.3; O2SAT 99
[2021-01-10] MEDS: quetiapine 100 mg Tablet PO (21:12)
[2021-01-10] MEDS: nicotine 2 mg Gum BUCCAL (21:16)
[2021-01-10] MEDS: hyDROXYzine 25 mg Capsule 50 MG PO (21:16)
[2021-01-10] MEDS: trazodone 50 mg Tablet PO (21:16)
[2021-01-10 21:40] VITALS: RESP 16
[2021-01-11] MEDS: OLANZapine 10 mg TABLET PO ×2 (05:53→20:34)
[2021-01-11 06:00] VITALS: BP 105/70; PULSE 85; RESP 18; TEMP 36.5; O2SAT 99
[2021-01-11] MEDS: lithium carbonate 300 mg Capsule PO ×3 (09:33→20:34)
[2021-01-11 12:25] LABS: Lithium 0.5 mmol/L (0.6-1.2)
--- NOTE | 2021-01-11 13:52 | P.NPUPN_ITS ---
Subjective NPU Subjective: Interval history: He did not sleep as well last night. There was a disturbance around 3 or 4 AM that woke him up. He was sleeping well before that. T He had the scheduled Zyprexa 10 mg and Seroquel 100 mg but did not have any as needed medications last night. Yesterday was the second day of lithium 3 times a day. I have not heard him yelling that he was Marlon Michael today. He gave me a letter yesterday after I wrote my note. It said that he wanted the vaccine dewayne use then he would be the [place] martyr. He told me today that all of his family is against the vaccine. He doesn't think that it would kill him but somehow thinks he would be martyr if he took it. He then realized that it did not really make much sense and he decided not to get the vaccine. However later he said he change his mind and did want it. I did not find out his reasoning. The nurses called the pharmacy to verify and found out that we do not give the vaccine anymore because we cannot schedule the second dose. Mental Status Exam MSE Comments: This is a well-nourished, well-developed, tall, white male, in hospital scrubs, with adequate dress, grooming, and eye contact. No abnormal movement . Psychomotor activity continues to be increased. He is usually walking up and down the hallway. He has not been gesturing with his arms and hands quite as much. He was calm and cooperative today. His speech is clear and coherent and a regular rate and rhythm. There was no push. His mood is good and his affect less animated. Thought content is still delusional and grandiose. He can still be heard saying that Eddi Flores is his cousin and should have been president. He denies any auditory or visual hallucinations and was not overtly attending to any. Attention and concentration appear to be limited and he is very distractible. He is impulsive and intrusive on the unit. Insight and judgment are very impaired. Cognition: Patient Appearance: Appropriate Ability to Follow Directions: Poor Patient Orientation (long list): Person, Place and Name Comprehension Ability: No Impairment Hallucination Type: None Delusion Description: Muslim Thought Process: Circumstantial, Disorganized, Flight of Ideas, Loose Associations and Tangential Affect: Affect Description: Elated Behavior: Patient Behavior: Impulsive Speech Pattern: Clear and Excessive Vitals/I&O/Wt Last Vital Signs Temp 97.7 F 01/11/21 06:00 Pulse 85 01/11/21 06:00 Resp 18 01/11/21 06:00 BP 105/70 01/11/21 06:00 Pulse Ox 99 01/11/21 06:00 Weight last 48 hrs Weight 90.718 kg A&P Assessment and plan (1) Psychosis: Status: Acute Additional A&P Information This is a 25-year-old, white male, with psychosis/jaqueline, who presented with suicidal and homicidal assertions at outside hospital, on a 21-day commitment and has been cooperative with treatment RECOMMENDATION AND PLAN: 1. Continue Zyprexa 10 mg twice a day. We will continue Seroquel 100 mg at bedtime and the other as needed medications. Will continue lithium to 3 times a day. We'll check a level tomorrow. 2. Encourage individual, group, and milieu therapy. 3. Continue q-15 minute checks for safety. 4. Encourage sober living treatment after discharge, at the highest level of care, to which he is willing to commit. 5. He is on 21-day commitment for treatment and evaluation.. Involuntary Hold Information 96 Hour Hold: 96 Hour Involuntary Admission: Yes 96 Hour Hold Ending Date: 01/04/21 96 Hour Hold Ending Time: 16:45 Attestations NPU Medical Necessity Statement*: Inpatient hospitalization is medically necessary and the clinically appropriate intervention at this time. We will initiate medications and make changes as indicated. Coding Level of Care Code Acute Podiatric Assistant for Hollie Elder Diagnoses Psychosis F29
[2021-01-11 14:00] VITALS: BP 122/80; PULSE 109; RESP 20; TEMP 36.1; O2SAT 98
--- NOTE | 2021-01-11 14:19 | NPU.GN ---
[facility] Topic:Coping Mechanisms General Mood of Group: Davidson did attend and participate in group. His demeanor and mindset has not changed as they are still altered. He often spoke out of turn and off topic and loud at times. He did have good hygiene.
[2021-01-11] MEDS: quetiapine 100 mg Tablet PO (20:34)
[2021-01-11 21:21] VITALS: RESP 15
[2021-01-12] MEDS: OLANZapine 10 mg TABLET PO ×2 (04:28→20:35)
[2021-01-12 06:34] VITALS: BP 135/80; PULSE 87; RESP 18; TEMP 35.9; O2SAT 100
[2021-01-12 07:35] LABS: Lithium 0.3 mmol/L (0.6-1.2)
[2021-01-12] MEDS: lithium carbonate 300 mg Capsule PO ×3 (09:41→20:35)
[2021-01-12] MEDS: nicotine 2 mg Gum BUCCAL (10:44)
--- NOTE | 2021-01-12 13:24 | P.NPUPN_ITS ---
Subjective NPU Subjective: Interval history: He seems to be calming down a little. He is no longer saying that he is Marlon Rodriguez. Today he told me he is just Davidson Zaman. He is still walking up and down the halls and intrusive but overall not as loud and wound up as he had been. He is actually in bed at this point after lunch. I talked to him earlier today and have been observing him through the day. He denies any side effects from his medication. He agreed to stay a few more days. He said the family is going to come this afternoon and he will asked them how he has been doing the last 2 days. Mental Status Exam MSE Comments: This is a well-nourished, well-developed, tall, white male, in hospital scrubs, with adequate dress, grooming, and eye contact. No abnormal movement . Psychomotor activity continues to be increased. But a little less. He is frquently walking up and down the hallway. He has not been gesturing with his arms and hands quite as much. He was calm and cooperative today. His speech is clear and coherent and a regular rate and rhythm. There was no push. His mood is good and his affect less animated. Thought content is still delusional and grandiose. He denies any auditory or visual hallucinations and was not overtly attending to any. Attention and concentration appear to be limited and he is very distractible. He is impulsive and intrusive on the unit. Insight and judgment are very impaired. Cognition: Patient Appearance: Appropriate Ability to Follow Directions: Poor Patient Orientation (long list): Person, Place and Name Comprehension Ability: No Impairment Hallucination Type: None Delusion Description: Alevism Thought Process: Circumstantial, Disorganized, Flight of Ideas, Loose Associations and Tangential Affect: Affect Description: Appropriate Behavior: Patient Behavior: Appropriate Speech Pattern: Appropriate Vitals/I&O/Wt Last Vital Signs Temp 96.6 F L 01/12/21 06:34 Pulse 87 01/12/21 06:34 Resp 18 01/12/21 06:34 BP 135/80 01/12/21 06:34 Pulse Ox 100 01/12/21 06:34 A&P Assessment and plan (1) Psychosis: Status: Acute Additional A&P Information This is a 25-year-old, white male, with psychosis/jaqueline, who presented with suicidal and homicidal assertions at outside hospital, on a 21-day commitment and has been cooperative with treatment RECOMMENDATION AND PLAN: 1. Continue Zyprexa 10 mg twice a day. We will continue Seroquel 100 mg at bedtime and the other as needed medications. Will continue lithium to 3 times a day. We'll check a level tomorrow. 2. Encourage individual, group, and milieu therapy. 3. Continue q-15 minute checks for safety. 4. Encourage sober living treatment after discharge, at the highest level of care, to which he is willing to commit. 5. He is on 21-day commitment for treatment and evaluation.. Involuntary Hold Information 96 Hour Hold: 96 Hour Involuntary Admission: Yes 96 Hour Hold Ending Date: 01/04/21 96 Hour Hold Ending Time: 16:45 Attestations NPU Medical Necessity Statement*: Inpatient hospitalization is medically necessary and the clinically appropriate intervention at this time. We will initiate medications and make changes as indicated. Coding Level of Care Code Acute Finisher Tailor Apprentice for Hollie Elder Diagnoses Psychosis F29
--- NOTE | 2021-01-12 13:37 | NPU.GN ---
[facility] Topic:Depression Bingo General Mood of Group Davidson did very well this morning in group. He seemed to stay more on task and seemed to be in a good mindset and his huygiene was good.
[2021-01-12 14:00] VITALS: BP 135/70; PULSE 116; RESP 20; TEMP 36.4; O2SAT 98
[2021-01-12] MEDS: quetiapine 100 mg Tablet PO (20:35)
[2021-01-12 22:00] VITALS: RESP 16
[2021-01-13 06:00] VITALS: BP 121/68; PULSE 90; RESP 16; O2SAT 96
[2021-01-13] MEDS: OLANZapine 10 mg TABLET PO ×2 (06:17→20:24)
--- NOTE | 2021-01-13 07:28 | W.PM.NPUPNS ---
Subjective NPU Subjective: Interval history: Continues to be improved however he has not been sleeping as well. This is probably because he is not receiving the Zyprexa Zydis and Vistaril in the evenings like he was. His lithium level was 0.3. He requested an increase in his Seroquel. He will be given 600 lithium this morning and in the evening and then tomorrow will be increased to 1200 mg/day. He has a court date for January 18 and would like to be released by then. He was told that if he continues to do well that is a possibility. He said that his family came to visit yesterday and that they confirmed that Eddi Flores is his cousin. Mental Status Exam MSE Comments: This is a well-nourished, well-developed, tall, white male, in hospital scrubs, with adequate dress, grooming, and eye contact. No abnormal movement . Psychomotor activity continues to be increased. But a frequently less than a few days ago. He is frquently walking up and down the hallway. He has not been gesturing with his arms and hands quite as much. He was calm and cooperative today. His speech is clear and coherent and a regular rate and rhythm. There was no push. His mood is good and his affect less animated. Thought content is still delusional and grandiose. He denies any auditory or visual hallucinations and was not overtly attending to any. Attention and concentration appear to be limited and he is very distractible. He is impulsive and intrusive on the unit. Insight and judgment are very impaired. Cognition: Patient Appearance: Appropriate Ability to Follow Directions: Poor Patient Orientation (long list): Person, Place and Name Comprehension Ability: No Impairment Hallucination Type: None Delusion Description: Denominational Thought Process: Circumstantial, Disorganized, Flight of Ideas, Loose Associations and Tangential Affect: Affect Description: Appropriate Behavior: Patient Behavior: Appropriate Speech Pattern: Appropriate Vitals/I&O/Wt Last Vital Signs Temp 97.5 F L 01/12/21 14:00 Pulse 90 01/13/21 06:00 Resp 16 01/13/21 06:00 BP 121/68 01/13/21 06:00 Pulse Ox 96 01/13/21 06:00 A&P Assessment and plan (1) Psychosis: This is a 25-year-old, white male, with psychosis/jaqueline, who presented with suicidal and homicidal assertions at outside hospital, on a 21-day commitment and has been cooperative with treatment RECOMMENDATION AND PLAN: 1. Continue Zyprexa 10 mg twice a day. We will increase Seroquel 200 mg at bedtime and the other as needed medications. Will increase lithium to 1200 mg daily. 2. Encourage individual, group, and milieu therapy. 3. Continue q-15 minute checks for safety. 4. Encourage sober living treatment after discharge, at the highest level of care, to which he is willing to commit. 5. He is on 21-day commitment for treatment and evaluation.. Status: Acute Involuntary Hold Information 96 Hour Hold: 96 Hour Involuntary Admission: Yes 96 Hour Hold Ending Date: 01/04/21 96 Hour Hold Ending Time: 16:45 Attestations NPU Medical Necessity Statement*: Inpatient hospitalization is medically necessary and the clinically appropriate intervention at this time. We will initiate medications and make changes as indicated. Coding Level of Care Code Acute Manager Of Application Development for Hollie Elder Diagnoses Psychosis F29
[2021-01-13] MEDS: lithium carbonate 300 mg Capsule 600 MG PO ×2 (08:29→20:24)
[2021-01-13] MEDS: nicotine 2 mg Gum BUCCAL (08:30)
[2021-01-13] MEDS: lithium carbonate 300 mg Capsule PO (12:29)
--- NOTE | 2021-01-13 13:29 | NPU.GN ---
[facility] Topic:Whine Barrel Activity General Mood of Group: Davidson did attend group and participated. He is improving with not interrupting as much and staying more focused and on topic in group. He was ok with his hygiene.
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
[2021-01-13 14:00] VITALS: BP 121/68; PULSE 90; RESP 16; TEMP 36.4; O2SAT 96
[2021-01-13 14:08] VITALS: BP 127/66; PULSE 95; RESP 17; TEMP 36.6; O2SAT 99
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
[2021-01-13 19:01] LABS: HIV 1 & 2 Antibody Non-Reactive (Non-Reactiv); HIV 1 & 2 Antigen Non-Reactive (Non-Reactiv)
[2021-01-13 20:19] LABS: Hepatitis A Antibody IgM Non-Reactive (Nonreactive); Hepatitis B Core AB, Total Non-Reactive (Nonreactive); Hepatitis B Surface AB 3.5 (11.5-1000); Hepatitis B Surface Antigen Non-Reactive (Nonreactive); Hepatitis C Virus Antibody Non-Reactive (Nonreactive)
[2021-01-13] MEDS: quetiapine 100 mg Tablet 200 MG PO (20:24)
[2021-01-13 22:00] VITALS: RESP 17
[2021-01-14 06:00] VITALS: RESP 17
[2021-01-14] MEDS: lithium carbonate 300 mg Capsule PO ×2 (09:05→12:36)
[2021-01-14] MEDS: OLANZapine 10 mg TABLET PO ×2 (09:06→20:50)
[2021-01-14 14:00] VITALS: BP 145/74; PULSE 96; RESP 18; TEMP 36.6; O2SAT 97
--- NOTE | 2021-01-14 17:42 | W.PM.NPUPNS ---
Subjective NPU Subjective: Interval history: Patient presents today explaining the events from yesterday with the other patient. Clearly a consensual interaction but he identified that it was a impulsive decision. He endorses having a girlfriend at home and having commitment to that relationship where there is a child. When he was last seen by this senior medical writer 2 weeks ago he was not aware of his psychotic thinking and behavior but now he has awareness of his delusional thinking and is able to in real-time acknowledged to and work through issues related to the errant thinking through self talk. We discussed working towards discharge as soon as possible. Mental Status Exam MSE Comments: This is a well-nourished, well-developed, tall, white male, in hospital scrubs, with adequate dress, grooming, and eye contact. No abnormal movement. Cooperative with exam in no acute distress. His speech is clear and coherent and a regular rate and rhythm. Mood described as pretty good, affect more calm. Thought process more organized, thought content: Patient denied suicidal or homicidal ideation, there were no delusions reported is still delusional and grandiose. He denies any auditory or visual hallucinations and was not overtly attending to any. Attention and concentration appear to be limited and he is very distractible. He is impulsive and intrusive on the unit. Insight and judgment are improving and impulse control is impaired.. Vitals/I&O/Wt Last Vital Signs Temp 97.9 F 01/14/21 14:00 Pulse 96 01/14/21 14:00 Resp 16 01/14/21 21:38 BP 145/74 01/14/21 14:00 Pulse Ox 97 01/14/21 14:00 Data NPU Micro: Microbiology 01/13/21 18:37 Chlamydia trachomatis ([facility]) - Final Endocervical Swab Neisseria gonorrhoeae ([facility]) - Final Microbiology 01/13/21 18:37 Endocervical Swab Chlamydia trachomatis ([facility]) - Final 01/13/21 18:37 Endocervical Swab Neisseria gonorrhoeae ([facility]) - Final A&P Additional A&P Information (1) Psychosis: This is a 25-year-old, white male, with psychosis/jaqueline, who presented with suicidal and homicidal assertions at outside hospital, on a 21-day commitment and has been cooperative with treatment RECOMMENDATION AND PLAN: 1. Continue current medication. 2. Encourage individual, group, and milieu therapy. 3. Continue q-15 minute checks for safety. 4. Encourage sober living treatment after discharge, at the highest level of care, to which he is willing to commit. 5. He is on 21-day commitment for treatment and evaluation. Involuntary Hold Information 96 Hour Hold: 96 Hour Involuntary Admission: Yes 96 Hour Hold Ending Date: 01/04/21 96 Hour Hold Ending Time: 16:45 Attestations NPU Medical Necessity Statement*: Inpatient hospitalization is medically necessary and the clinically appropriate intervention at this time. We will initiate medications and make changes as indicated. Coding Level of Care Code Acute Elementary School Principal for Hollie Elder
[2021-01-14] MEDS: lithium carbonate 300 mg Capsule 600 MG PO (20:50)
[2021-01-14] MEDS: quetiapine 100 mg Tablet 200 MG PO (20:50)
[2021-01-14 21:38] VITALS: RESP 16
[2021-01-15] MEDS: OLANZapine 10 mg TABLET PO ×2 (05:53→20:15)
[2021-01-15 06:00] VITALS: BP 123/52; PULSE 108; RESP 18; TEMP 37; O2SAT 98
[2021-01-15] MEDS: lithium carbonate 300 mg Capsule PO ×2 (08:43→12:48)
[2021-01-15] MEDS: nicotine 2 mg Gum BUCCAL (08:43)
[2021-01-15 14:00] VITALS: BP 116/67; PULSE 92; RESP 18; TEMP 36.8; O2SAT 98
--- NOTE | 2021-01-15 16:14 | W.PM.NPUPNS ---
Subjective NPU Subjective: Interval history: Patient presents today continuing to make small but steady improvement. We discussed the critical need for him to continue his medication which he assured he would be adherent. Treatment team connected with grandmother and family and we discussed the likelihood for discharge in the morning but stressed with him as well the need for continued convalescence. Mental Status Exam MSE Comments: This is a well-nourished, well-developed, tall, white male, in hospital scrubs, with adequate dress, grooming, and eye contact. No abnormal movement. Cooperative with exam in no acute distress. His speech is clear and coherent and a regular rate and rhythm. Mood described as pretty good, affect congruent. Thought process more organized, thought content: Patient denied suicidal or homicidal ideation, there were no delusions reported and his delusions are more identifiable to him to continue to improve/lessen. He denies any auditory or visual hallucinations and was not overtly attending to any. Attention and concentration are improving and memory is more reliable. He has been less impulsive and intrusive on the unit. Insight and judgment are improving and impulse control is limited. Vitals/I&O/Wt Last Vital Signs Temp 98.2 F 01/15/21 14:00 Pulse 92 01/15/21 14:00 Resp 18 01/15/21 14:00 BP 116/67 01/15/21 14:00 Pulse Ox 98 01/15/21 14:00 Data NPU Micro: Microbiology 01/13/21 18:37 Chlamydia trachomatis ([facility]) - Final Endocervical Swab Neisseria gonorrhoeae ([facility]) - Final Microbiology 01/13/21 18:37 Endocervical Swab Chlamydia trachomatis ([facility]) - Final 01/13/21 18:37 Endocervical Swab Neisseria gonorrhoeae ([facility]) - Final A&P Additional A&P Information (1) Psychosis: This is a 25-year-old, white male, with psychosis/jaqueline, who presented with suicidal and homicidal assertions at outside hospital, on a 21-day commitment and has been cooperative with treatment RECOMMENDATION AND PLAN: 1. Continue current medication. 2. Encourage individual, group, and milieu therapy. 3. Continue q-15 minute checks for safety. 4. Encourage sober living treatment after discharge, at the highest level of care, to which he is willing to commit. 5. He is on 21-day commitment for treatment and evaluation. Consider discharge in the morning Involuntary Hold Information 96 Hour Hold: 96 Hour Involuntary Admission: Yes 96 Hour Hold Ending Date: 01/04/21 96 Hour Hold Ending Time: 16:45 Attestations NPU Medical Necessity Statement*: Inpatient hospitalization is medically necessary and the clinically appropriate intervention at this time. We will initiate medications and make changes as indicated. Likely length of stay 1 to 3 days. Coding Level of Care Code Acute Automatic Dry Starch Operator for Hollie Elder
[2021-01-15] MEDS: lithium carbonate 300 mg Capsule 600 MG PO (20:14)
[2021-01-15] MEDS: quetiapine 100 mg Tablet 200 MG PO (20:15)
[2021-01-15 21:19] VITALS: BP 111/61; PULSE 81; RESP 18; TEMP 36.8; O2SAT 97
[2021-01-16 06:00] VITALS: BP 109/68; PULSE 112; RESP 18; TEMP 36.7; O2SAT 98
[2021-01-16] MEDS: OLANZapine 10 mg TABLET PO (06:30)
--- NOTE | 2021-01-16 07:49 | P.NPUDS_ITS ---
Diagnoses at Discharge Discharge Diagnosis (1) Psychosis: Status: Acute Reason for Visit Reason for Visit: PSYCHOSIS - - - RM 170 Brief History: History of Present Illness Davidson Zaman is a 25 year old male who presented to the outside hospital with concerns for psychosis and lethality. He was transferred to [facility] and admitted to the neuropsychiatric unit for definitive treatment of those issues. He presents today fairly animated, at times being very loud and aggressive with his speech. At one point during treatment team, he slipped a note through the door that said that he would not speak one word until he was discharged from our hospital. He wrote that on his 96-hour hold acknowledgment paperwork that gives him the time and information on the hold. At times he seeme d aggressive and threatening, but at times he seemed calm and respectful, awful making muslim comments like amen brother or thank God, sometimes giving a handshake and appearing welcoming, and other times being posturing. He reports he has had one psychiatric inpatient stay but it is not clear if he understood what that meant. He reports that he did have outpatient services as a kid, that he was on medications when he was 15 years old but denies any recently. He reports he smokes about a pack to two packs of cigarettes a day. He denies alcohol but endorses marijuana use. He initially said that he did not have any other illicit drug use, but then he seemed to suggest that he had. He denied ever being in the rehab or having a DUI. His conversation was sometimes staged in that he had certain word packages that he would state. One of the main ones was that he is an [place] martyr and he talked about being an [place] Martyr, though could not articulate what that actually meant. He talked about being stabbed in the legs, or stabbed at some point, but it seemed at one point that he was taking metaphorically about that. He talked about someone dying, but then it was unclear if that was real or imagined. He at times seemed to be lost in the conversation. He at one point denied that he would consider medication, then at another point when I talked to him about the fact that he was presenting with what we would call jaqueline and would benefit from medication. He initially refused and then he said he would take Abilify. We discussed the risks, benefits, and alternatives of me putting it on his medications for them to offer him in the morning, and he appeared to understand and agreed to proceed as is documented in this note. When asked about suicide attempts, he said he had one in the past but then continued on the muslim focus talking about God and how only God could take you and God?s plans. He seemed to understand that he was on a 96-hour hold, but then did not seem to really understand the specifics. PSYCHIATRIC HISTORY: As above. SUBSTANCE ABUSE HISTORY: As above. FAMILY HISTORY: He reports that there are some mental health issues on his mother?s side, but th en denied any other family history issues, addiction, suicide attempts, or completions. He seemed to be limited as a historian. DEVELOPMENTAL HISTORY: He denies any issues with his mother?s or delivery of him. He met all developmental milestones on time. He denies any speech therapy, learning support, emotional support, or special education classes. PSYCHOSOCIAL HISTORY: He reports his mom and dad were together when he was born, and that he has a younger sister that is the product of that union. He reports his mother had another daughter who is his half-sibling. He reports his childhood was great and denied any emotional, physical, or sexual abuse. He reports he graduated from high school and was in [employer] but did not finish. He endorses being a heterosexual with his longest relationship being three years. He reports he has never been , that he has a 7-year-old child somewhere and a child that was born on 07[birth year]04-20 as well. He denies being in the but does report this [employer] thing, and again reported that he was an [place] Martyr. He endorses being a Restorationism. He reports that he has worked off and on, and he endorses living with his maternal grandmother. LEGAL HISTORY: He reports he has never been in intermediate. MEDICAL HISTORY: Denied. Hospital Course Hospital Course He slowly acclimated to the individual, group and milieu therapies provided. He was initially tried on Abilify 10 mg but that did not have much impact. He was changed to Zyprexa 10 mg twice a day and Seroquel at bedtime with some benefit. He improved significantly with lithium 1200 mg daily. He tolerated these doses and showed steady improvement during his stay. He was able to contract for safety outside hospital prior to discharge. During the hospitalization, patient had routine laboratory studies which were within normal limits except for few outliers. Additionally there was a general medical evaluation which was also within normal limits and revealed no new acute processes. Discharge Summary: At the time of discharge, lethality was denied and psychosis was resolving. Mood and anxiety were well managed. Patient endorsed a plan to follow-up with the aftercare recommendations of the treatment team. Patient was evaluated and deemed to be absent credible lethality, and had achieved the maximum benefit from an inpatient hospitalization, so was discharged. Involuntary Hold Information 96 Hour Hold: 96 Hour Involuntary Admission: Yes 96 Hour Hold Ending Date: 01/04/21 96 Hour Hold Ending Time: 16:45 Mental Status Exam MSE Comments: This is a well-nourished, well-developed, tall, white male, in hospital scrubs, with adequate dress, grooming, and eye contact. No abnormal movement. Cooperative with exam in no acute distress. His speech is clear and coherent and a regular rate and rhythm. Mood described as good, affect congruent. Thought process more organized, thought content: Patient denied suicidal or homicidal ideation, there were no delusions reported and his delusions are more identifiable to him to continue to improve/lessen. He denies any auditory or visual hallucinations and was not overtly attending to any. Attention and concentration are improving and memory is more reliable. He has been less impulsive and intrusive on the unit. Insight and judgment are improving and impulse control is limited. Discharge Data Data Completed and Pending: Pending at discharge Category Date Time Status [place] Routine Lab 01/16/21 07:45 Ordered Vitals: Last Vital Signs Temp 98.0 F 01/16/21 06:00 Pulse 112 H 01/16/21 06:00 Resp 18 01/16/21 06:00 BP 109/68 01/16/21 06:00 Pulse Ox 98 01/16/21 06:00 Discharge Plan Discharge Patient Disposition: Home Condition: Stable Prescriptions: New olanzapine 10 mg Tablet 10 mg PO 0700,2100 30 Days Qty: 60 RF: 1 quetiapine 100 mg Tablet 200 mg PO BEDTIME 30 Days Qty: 60 RF: 1 lithium carbonate 300 mg Capsule 600 mg PO BEDTIME 30 Days Qty: 60 RF: 1 lithium carbonate 300 mg Capsule 300 mg PO 0900,1300 30 Days Qty: 60 RF: 1 Discharge Orders: Discharge Order (Routine); Ordered 01/16/21 Ordered By: Yamil Boggs Referrals: [facility] [Other] - 01/28/21 1:30 pm (Outpatient rehab) [facility] [Other] - 01/21/21 11:00 am (Medication Management. Call within 24 hours if unable to make appointment) Discharge Diet: Regular Discharge Activity: Resume usual activity Patient Instructions: Opioid Safety Discharge Attestations NPU Time Spent in Discharge Care*: less than 30 min Specific Discharge Activities: Specific discharge activities: educating patient, discussing with bottle caser/social workers/dc planners, documenting/other paperwork and evaluating patient/reviewing data Coding Level of Care Code Acute [facility] DC note Diagnoses Psychosis F29
[2021-01-16 08:03] VITALS: BP 116/78; PULSE 71; RESP 17; TEMP 36.6; O2SAT 99
[2021-01-16] MEDS: lithium carbonate 300 mg Capsule PO (08:30)
--- NOTE | 2021-01-30 02:28 | P.NPUDS_ITS ---
Diagnoses at Discharge Discharge Diagnosis (1) Psychosis: Status: Acute Reason for Visit Reason for Visit: PSYCHOSIS - - - RM 170 Brief History: [facility] NPU History of Present Illness Davidson Zaman is a 25 year old male who presented to the outside hospital with concerns for psychosis and lethality. He was transferred to [facility] and admitted to the neuropsychiatric unit for definitive treatment of those issues. He presents today fairly animated, at times being very loud and aggressive with his speech. At one point during treatment team, he slipped a note through the door that said that he would not speak one word until he was discharged from our hospital. He wrote that on his 96-hour hold acknowledgment paperwork that gives him the time and information on the hold. At times he seemed aggressive and threatening, but at times he seemed calm and respectful, awful making mu-ism comments like amen brother or thank God, sometimes giving a handshake and appearing welcoming, and other times being posturing. He reports he has had one psychiatric inpatient stay but it is not clear if he understood what that meant. He reports that he did have outpatient services as a kid, that he was on medications when he was 15 years old but denies any recently. He reports he smokes about a pack to two packs of cigarettes a day. He denies alcohol but endorses marijuana use. He initially said that he did not have any other illicit drug use, but then he seemed to suggest that he had. He denied ever being in the rehab or having a DUI. His conversation was sometimes staged in that he had certain word packages that he would state. One of the main ones was that he is an [place] martyr and he talked about being an [place] Martyr, though could not articulate what that actually meant. He talked about being stabbed in the legs, or stabbed at some point, but it seemed at one point that he was taking metaphorically about that. He talked about someone dying, but then it was unclear if that was real or imagined. He at times seemed to be lost in the conversation. He at one point denied that he would consider medication, then at another point when I talked to him about the fact that he was presenting with what we would call jaqueline and would benefit from medication. He initially refused and then he said he would take Abilify. We discussed the risks, benefits, and alternatives of me putting it on his medications for them to offer him in the morning, and he appeared to understand and agreed to proceed as is documented in this note. When asked about suicide attempts, he said he had one in the past but then continued on the mu-ism focus talking about God and how only God could take you and God?s plans. He seemed to understand that he was on a 96-hour hold, but then did not seem to really understand the specifics. PSYCHIATRIC HISTORY: As above. SUBSTANCE ABUSE HISTORY: As above. FAMILY HISTORY: He reports that there are some mental health issues on his mother?s side, but then denied any other family history issues, addiction, suicide attempts, or completions. He seemed to be limited as a historian. DEVELOPMENTAL HISTORY: He denies any issues with his mother?s or delivery of him. He met all developmental milestones on time. He denies any speech therapy, learning support, emotional support, or special education classes. PSYCHOSOCIAL HISTORY: He reports his mom and dad were together when he was born, and that he has a younger sister that is the product of that union. He reports his mother had another daughter who is his half-sibling. He reports his childhood was great and denied any emotional, physical, or sexual abuse. He reports he graduated from high school and was in [employer] but did not finish. He endorses being a heterosexual with his longest relationship being three years. He reports he has never been , that he has a 7-year-old child somewhere and a child that was born on 07-04-20 as well. He denies being in the but does report this [employer] thing, and again reported that he was an [place] Martyr. He endorses being a Gnosticism. He reports that he has worked off and on, and he endorses living with his maternal grandmother. Hospital Course Hospital Course He slowly acclimated to the individual, group and milieu therapies provided. He was initially tried on Abilify 10 mg but that did not have much impact. He was changed to Zyprexa 10 mg twice a day and Seroquel at bedtime with some benefit. He improved significantly with lithium 1200 mg daily. He tolerated these doses and showed steady improvement during his stay. He was able to contract for safety outside hospital prior to discharge. During the hospitalization, patient had routine laboratory studies which were within normal limits except for few outliers. Additionally there was a general medical evaluation which was also within normal limits and revealed no new acute processes. Discharge Summary: At the time of discharge, lethality was denied and psychosis was resolving. Mood and anxiety were well managed. Patient endorsed a plan to follow-up with the aftercare recommendations of the treatment team. Patient was evaluated and deemed to be absent credible lethality, and had achieved the maximum benefit from an inpatient hospitalization, so was discharged. Involuntary Hold Information 96 Hour Hold: 96 Hour Involuntary Admission: Yes 96 Hour Hold Ending Date: 01/04/21 96 Hour Hold Ending Time: 16:45 Mental Status Exam MSE Comments: This is a well-nourished, well-developed, tall, white male, in hospital scrubs, with adequate dress, grooming, and eye contact. No abnormal movement. Cooperative with exam in no acute distress. His speech is clear and coherent and a regular rate and rhythm. Mood described as pretty good, affect congruent. Thought process more organized, thought content: Patient denied s uicidal or homicidal ideation, there were no delusions reported and his delusions are more identifiable to him to continue to improve/lessen. He denies any auditory or visual hallucinations and was not overtly attending to any. Attention and concentration are improving and memory is more reliable. He has been less impulsive and intrusive on the unit. Insight and judgment are improving and impulse control is limited. Cognition: Patient Appearance: Appropriate Level of Consciousness: Awake, Alert, Appropriate and Follows Commands Ability to Follow Directions: Poor Patient Orientation (long list): Person, Place and Name Comprehension Ability: No Impairment Hallucination Type: None Delusion Description: Faith Thought Process: Circumstantial, Flight of Ideas, Loose Associations and Tangential Affect: Affect Description: Calm Behavior: Patient Behavior: Cooperative Speech Pattern: Clear Discharge Data Vitals: Last Vital Signs Temp 97.9 F 01/16/21 08:03 Pulse 71 01/16/21 08:03 Resp 17 01/16/21 08:03 BP 116/78 01/16/21 08:03 Pulse Ox 99 01/16/21 08:03 Discharge Plan Discharge Patient Disposition: Home Condition: Stable Prescriptions: New olanzapine 10 mg Tablet 10 mg PO 0700,2100 30 Days Qty: 60 RF: 1 quetiapine 100 mg Tablet 200 mg PO BEDTIME 30 Days Qty: 60 RF: 1 lithium carbonate 300 mg Capsule 600 mg PO BEDTIME 30 Days Qty: 60 RF: 1 lithium carbonate 300 mg Capsule 300 mg PO 0900,1300 30 Days Qty: 60 RF: 1 Discharge Orders: Discharge Order (Routine); Ordered 01/16/21 Ordered By: Yamil Boggs Referrals: [facility] [Other] - 01/28/21 1:30 pm (Outpatient rehab) [facility] [Other] - 01/21/21 11:00 am (Medication Management. Call within 24 hours if unable to make appointment) Discharge Diet: Regular Discharge Activity: Resume usual activity Patient Instructions: Opioid Safety Discharge Attestations NPU Time Spent in Discharge Care*: less than 30 min Specific Discharge Activities: Specific discharge activities: educating patient, discussing with piano case maker/social workers/dc planners, documenting/other paperwork and evaluating patient/reviewing data Coding Level of Care Code Acute [facility] DC note Diagnoses Psychosis F29
== END 2021-01-16 10:03 | disposition home or self-care (01) | DRG 885 ==
PROVIDERS: Psychiatry & Neurology Psychiatry; Admitting Provider Psychiatry & Neurology Psychiatry; Visit Provider Psychiatry & Neurology Psychiatry
DX: F29 Unspecified psychosis not due to a substance or known physiological condition (principal); R45.851 Suicidal ideations; R45.850 Homicidal ideations; F17.210 Nicotine dependence, cigarettes, uncomplicated; Z86.59 Personal history of other mental and behavioral disorders; Z81.8 Family history of other mental and behavioral disorders
CPT/HCPCS: 36415; 80178; 86705; 86706; 86709; 86803; 87340; 87491; 87591; 87806; 96372; 97150; 97165; J1200; J1630; J2060

== ENCOUNTER 2025-02-07 14:23 | Emergency (ER) | payer MEDICAID, SELFPAY ==
--- OUTSIDE RECORDS SUMMARY | 2025-02-07 14:27 | XMS_ITS | Clinical Summary ---
Author Organization [facility] Address [address] [place] [address] Care Team Providers Care Refrigerator Repairman Name Role Phone Pcp, No Primary Care Provider Unavailabl e Allergies Active Allergy Reactions Criticality Noted Date Comments Ampicillin Medications HYDROcodone-alexandru taminophen (NORCO) 5-325 mg per tablet Take 1 tablet by mouth 2 (two) times a day as needed for moderate pain for up to 8 doses. Max Daily Amount: 2 tablets 8 tablet 08/25/2021 Active Immunizations Immunization Administration Dates Next Due HPV, quadrivalent 06/19/2012,01/18/2012,12/21/19 12 Hep A, ped/adol, 2 dose (HAVRIX, VAQTA) 07/19/19 13,01/18/2012 influenza, injectable, triva lent (AFLURIA/FLUZONE MDV) 12/21/2011 Family History Medical History Relation Name Comments Hypertension Father Hypertension Mother Relation Name Status Comments Father Mother Social History Tobacco Use Types Packs/Day Years Used Date Smoking Tobacco: Every Day Cigarettes Smokeless Tobacco: Never Alcohol Use Standard Drinks/Week Comments Never 0 (1 standard drink = 0.6 oz pur e alcohol) Sex and Gender Information Value Date Recorded Sex Assigned at Not on file Legal Sex Male 7:08 PM CDT Gender Identity Not on file Sexual Orientation Not on file Last Filed Vital Signs Vital Sign Reading Time Taken Comments Blood Pressure 140/85 10/23/2021 7:18 PM CDT Pulse 66 12/05/2020 8:00 AM CDT Temperature 36.7 C (98.1 F) 10/23/2021 7:18 PM CDT Respiratory Rate 18 10/23/2021 7:18 PM CDT Oxygen Saturation 100% 10/23/2021 7:18 PM CDT Inhaled Oxygen Concentration - - Weight 95.3 kg (210 lb) 10/23/2021 7:18 PM CDT Height 190.5 cm (6' 3 ) 10/23/2021 7:18 PM CDT Body Mass Index 26.25 10/23/2021 7:18 PM CDT Plan of Treatment Health Maintenance Due Date Last Done Comments Annual Wellness 1997 IPV Vaccines (4 of 4 - 4-dose series) 2001 10/28/1998, 01/05/1998, 1997 Varicella Vaccines (2 of 2 - 2-dose childhood series) 2001 10/28/1998 Influenza Vaccination (#1) 2024 12/21/2011 Td, Tdap Vaccines Adult 10/27/2031 10/26/2021, 11/14 Hepatitis B Vaccines Completed 04/16/1998, 1997, 1997 MMR Vaccines Completed 10/28/1998 HIB Vaccines Completed 02/18/1999, 05/1998, 01/05/1998, Additional history exists HPV Vaccines Completed 06/19/2012, 06/2011, 12/21/2011 Hepatitis A Vaccines Completed 07/18/2012, 01/18/20 12 Meningococcal Vaccines Aged Out No lo nger eligible based on patient's age to complete this topic Pneumococcal Vaccine: Pediatrics (0 to 5 Years) and At-Risk Patients (6 to 49 Years) Aged Out No longer eligible based on patient's age to complete this topic RSV Mab Nirsevimab (Beyfortus) <20 months Aged Out No longer eligibl e based on patient's age to complete this topic Rotavirus Vaccines Aged Out No longer eligible based on patient's age to complete this topic Insurance [employer] Care Teams Refrigerator Repairman Relationship Specialty Start Date End Date Pcp, No PCP - General 08/26/21
[2025-02-07 15:05] VITALS: BP 128/61; PULSE 58; RESP 18; O2SAT 100; BMI 25.0
--- NOTE | 2025-02-07 16:18 | ED_ITS ---
HPI - Nausea/Vomiting/Diarrhea 2 General: Chief complaint: Nausea/Vomiting/Diarrhea Stated complaint: NVD Time Seen by Provider: 02/07/25 16:18 Source: patient Mode of arrival: ambulatory Limitations: no limitations History of Present Illness: Patient is a 29-year-old male who presents to ED today with a complaint of nausea, vomiting, diarrhea, abdominal cramps stating I think I have food poisoning . He states he ate a leftover [place] dinner yesterday evening. He states he woke up this morning feeling fine but a few hours later began having diarrhea and vomiting. He feels like his abdomen is cramping. No fevers. He arrives with stable vital signs. During my examination, he is actively vomiting. Appears to have chills. MD elicited complaint: nausea, vomiting and diarrhea Onset (ago): hour(s) Description of diarrhea: watery Associated nausea: Yes Associated abdominal pain: Yes Location of pain: Diffuse Radiation: diffuse Pain consistency: intermittent Severity: mild Quality: cramping Exacerbating factors: none Relieving factors: none Associated symtoms: Reports nausea; Denies change in vision, chest pain, dizziness, dysuria, fatigue, headache(s) or malaise Related Data Previous Rx's ?Medication ?Instructions ?Recorded clindamycin HCl 150 mg capsule 450 mg (3 x 150 mg) PO TID 7 days 01/21/25 (Cleocin HCl) #63 caps ondansetron 4 mg disintegrating 4 mg PO Q8H PRN nausea and 02/07/25 tablet vomiting #14 tabs Allergies Allergy/AdvReac Type Severity Reaction Status Date / Time amoxicillin Allergy Severe ALGY-Rash Verified 02/07/25 15:15 Penicillins Allergy Severe ALGY-Rash Verified 02/07/25 15:15 Review of Systems 2 Const: Reports: chills; Denies: fever(s), body aches, fatigue or malaise Eyes: Denies: change in vision ENMT: Denies: throat pain or odynophagia Card: Denies: chest pain Resp: Denies: dyspnea GI: Reports: abdominal pain, nausea, vomiting, diarrhea and GI cramping; Denies: hematochezia or melena : Denies: flank pain, difficulty urinating, dysuria, urinary frequency or urinary urgency Musc: Denies: neck pain, back pain, extremity pain, extremity swelling, joint pain or joint swelling Skin/Breast: Denies: rash Neuro: Denies: headache(s), numbness in extremities, weakness in extremities, sensory changes or dizziness PFSH ED 2 PFSH: Medical History Psychosis Social History Smoking and tobacco/nicotine status: never used tobacco/nicotine Physical Exam 2 Const: COMMON NORMALS: average body habitus, patient oriented x3, no limitations, healthy appearing, alert and well nourished GENERAL APPEARANCE: cooperative ORIENTATION/CONSCIOUSNESS: Yes awake, Yes oriented to person, Yes oriented to place and Yes oriented to time OTHER: appears nauseous, actively vomiting, chills HENMT: COMMON NORMALS: normocephalic and atraumatic HEAD & SCALP: normal to inspection, normocephalic and atraumatic Resp: COMMON NORMALS: normal respiratory effort and clear to auscultation bilaterally AUSCULTATION: clear to auscultation bilaterally Cardio: COMMON NORMALS: regular rate and regular rhythm RATE: regular rate RHYTHM: regular rhythm GI: COMMON NORMALS: Normal to inspection, nondistended, normoactive bowel sounds present, Soft to palpation and No hepatosplenomegaly present I NSPECTION: Yes normal to inspection AUSCULTATION: Yes normoactive bowel sounds PALPATION: Yes Soft to palpation, Yes Tenderness to palpation present (GI) (mild diffusely), No Guarding due to palpation present (GI), No Rigid due to palpation and Yes No hepatosplenomegaly present : COMMON NORMALS: Yes no CVA tenderness BLADDER/KIDNEY EXAM: Yes no CVA tenderness Back/Pelvis: COMMON NORMALS: no CVA tenderness Extremity: GENERAL: Yes normal exam except as noted Neuro: GALA COMA SCALE: document GCS findings [place] coma scale eye opening: Spontaneous Gala coma scale verbal response: Orientated [place] coma scale motor response: Obey commands Gala coma scale total score: 15 COMMON NORMALS: patient oriented x3, moves all extremities, no focal motor deficits, no sensory deficits noted and gait normal SENSORIUM/ORIENTATION: Yes alert, Yes oriented to person, Yes oriented to place and Yes oriented to time Skin: COMMON NORMALS: no rashes or lesions noted GENERAL SKIN EXAM: no rashes or lesions noted Course 2 Vital Signs: Vital signs: Vital Signs Pulse Rate 51 L 02/07/25 17:16 Respiratory Rate 18 02/07/25 15:05 Blood Pressure 127/70 02/07/25 17:16 Pulse Oximetry 100 02/07/25 17:16 Oxygen Delivery Me thod Room Air 02/07/25 17:16 MDM - Nausea/Vomiting/Diarrhea Medical Decision Making Patient here for nausea, vomiting, diarrhea starting earlier today. Complains of abdominal cramping. Vital signs stable upon arrival. His blood work overall is nonactionable. White count of 15.09 most likely from his vomiting all morning. Chemistry overall unremarkable. He was given IV fluids and medications given here and was able to hold down water and Sprite. Feels like his abdominal pain has improved. Patient will be allowed discharge home with a prescription for antiemetics. Return ED precautions discussed. Differential Diagnosis Likely food poisoning, gastroenteritis, clostridium difficile infection, drug- induced nausea and vomiting and dehydration Medical Records I reviewed the patient's medical records. Lab Data I reviewed the patient's lab results. 02/07/25 16:35 02/07/25 16:35 Laboratory Results WBC 15.09 10^3/uL (3.29-11.43) H 02/07/25 16:35 RBC 5.02 10^6/uL (3.85-5.65) 02/07/25 16:35 Hgb 15.50 g/dL (11.27-16.99) 02/07/25 16:35 Hct 46.6 % (37-53) 02/07/25 16:35 MCV 92.8 fl (82-101) 02/07/25 16:35 MCH 30.9 pg (27-33) 02/07/25 16:35 MCHC 33.3 g/dL (30-55) 02/07/25 16:35 RDW 13.7 % (12.1-15.1) 02/07/25 16:35 Plt Count 199 10^3/cmm (157-399) 02/07/25 16:35 MPV 10.7 fL (7.4-10.4) H 02/07/25 16:35 Neut % (Auto) 87.7 % 02/07/25 16:35 Lymph % (Auto) 3.5 % 02/07/25 16:35 [place] % (Auto) 7.4 % 02/07/25 16:35 Eos % (Auto) 0.4 % 02/07/25 16:35 Baso % (Auto) 0.5 % 02/07/25 16:35 Neut # (Auto) 13.24 10^3/uL (1.8-7.7) H 02/07/25 16:35 Lymph # (Auto) 0.5 10^3/uL (0.8-4.8) L 02/07/25 16:35 [place] # (Auto) 1.1 10^3/uL (0.2-0.9) H 02/07/25 16:35 Eos # (Auto) 0.1 10^3/uL (0.0-0.8) 02/07/25 16:35 Baso # (Auto) 0.1 10^3/uL (0.0-0.1) 02/07/25 16:35 Nucleated RBC % (auto) 0 % 02/07/25 16:35 Nucleated RBCs # 0.0 /100WBC 02/07/25 16:35 Sodium 140 mmol/L (136-145) 02/07/25 16:35 Potassium 4.1 mmol/L (3.5-5.1) 02/07/25 16:35 Chloride 104 mmol/L (98-107) 02/07/25 16:35 Carbon Dioxide 25 mmol/L (22-29) 02/07/25 16:35 Anion Gap 15.1 (5-19) 02/07/25 16:35 BUN 11 mg/dL (6-20) 02/07/25 16:35 Creatinine 0.9 mg/dL (0.7-1.2) 02/07/25 16:35 GFR Calculation 101.2 mL/min (90-130) 02/07/25 16:35 Glucose 134 mg/dL (65-115) H 02/07/25 16:35 Calculated Osmolality 291 mOsm/kg (285-295) 02/07/25 16:35 Calcium 9.6 mg/dL (8.5-10.5) 02/07/25 16:35 Total Bilirubin 0.6 mg/dL (0.15-1.2) 02/07/25 16:35 AST 17 U/L (0-40) 02/07/25 16:35 ALT 19 U/L (0-41) 02/07/25 16:35 Alkaline Phosphatase 58 U/L (40-130) 02/07/25 16:35 Total Protein 7.3 g/dL (6.6-8.7) 02/07/25 16:35 Albumin 4.8 g/dL (3.5-5.2) 02/07/25 16:35 Globulin 2.5 g/dL (1.3-4.6) 02/07/25 16:35 Lipase 23 U/L (13-60) 02/07/25 16:35 No radiology studies performed this visit Discharge Plan Discharge Patient Disposition: Home Clinical Impression: Gastroenteritis Condition: Stable Prescriptions: New ondansetron 4 mg tablet,disintegrating 4 mg PO Q8H PRN (Reason: nausea and vomiting) Qty: 14 0RF No Action clindamycin HCl [Cleocin HCl] 150 mg capsule 450 mg PO TID 7 Days Qty: 63 0RF Discharge Orders: Discharge ED (Routine); Ordered 02/07/25 Ordered By: Carlee Alexandre Patient Instructions: Dehydration (DC), Gastroenteritis (DC), Acute Nausea and Vomiting (DC), Foodborne Illness (DC), Patient Portal & Fannie Instructions Activity Restrictions/Additional Instructions: I would like you to do a bland liquid diet over the next 24 to 48 hours and slowly advance as tolerated. You may use the nausea medications prescribed to you as needed. Please follow-up with primary care early next week if symptoms are not improving. You may return emergency department over the weekend for onset of severe abdominal pain, continued vomiting or diarrhea, fevers, generally feeling worse or unwell, or any other concerns you may have. Print Language: Zambian Coding Level of Care Code ED Switchboard Operator for Hollie Elder
[2025-02-07] MEDS: ondansetron 2 mg/ML SDV 2 mL 4 MG IVP (16:43)
[2025-02-07 16:46] LABS: Hematocrit 46.6 % (37-53); Hemoglobin 15.50 g/dL (11.27-16.99); Mean Corpuscular HGB Conc 33.3 g/dL (30-55); Mean Corpuscular Hemoglobin 30.9 pg (27-33); Mean Corpuscular Volume 92.8 fl (82-101); Nucleated Red Blood Cells % 0 %; Platelet Count 199 10^3/cmm (157-399); Red Blood Count 5.02 10^6/uL (3.85-5.65); White Blood Count 15.09 10^3/uL (3.29-11.43)
[2025-02-07 17:05] LABS: Alanine Aminotransferase 19 U/L (0-41); Albumin Level 4.8 g/dL (3.5-5.2); Alkaline Phosphatase 58 U/L (40-130); Anion Gap 15.1 (5-19); Aspartate Amino Transferase 17 U/L (0-40); Blood Urea Nitrogen 11 mg/dL (6-20); Calcium 9.6 mg/dL (8.5-10.5); Carbon Dioxide 25 mmol/L (22-29); Chloride 104 mmol/L (98-107); Creatinine Clr Calc Pharmacy 151.6906; Globulin 2.5 g/dL (1.3-4.6); Glucose 134 mg/dL (65-115); Lipase 23 U/L (13-60); Osmolality Calculated 291 mOsm/kg (285-295); Potassium 4.1 mmol/L (3.5-5.1); Sodium 140 mmol/L (136-145); Total Protein 7.3 g/dL (6.6-8.7)
[2025-02-07 17:16] VITALS: BP 127/70; PULSE 51; O2SAT 100
[2025-02-07] MEDS: LORazepam 2 mg/mL INJ 1 mL 1 MG IVP (17:17)
[2025-02-07] MEDS: haloperidol inj 5 mg/mL INJ 1 mL 2.5 MG IVP (17:17)
[2025-02-07 19:06] VITALS: BP 150/68; PULSE 111; O2SAT 96
== END 2025-02-07 19:08 | disposition home or self-care (01) ==
PROVIDERS: Emergency Medicine; Emergency Provider Physician Assistant
DX: K52.9 Noninfective gastroenteritis and colitis, unspecified (principal)
CPT/HCPCS: 36415; 80053; 83690; 85025; 96361; 96374; 96375; 99284; J1630; J2060; J2405; J7030